=== PATIENT | male | born 1955 | race Caucasian/White ===

== ENCOUNTER → 2016-03-22 | Outpatient (CLI) | payer MEDICARE, MEDICAID ==
[~2016-03-22] MED LIST: /WARF5TA; ACET65TA; ENOX40SY; IBUP600T; LISI20TA5; LORA2TAB; ZEST10TA5
[2016-03-22 10:22] LABS: INR 2.32
== END ==
LOC: M LAB 09:09
PROVIDERS: ATTEND Physician Assistant Medical
DX: Z86.718 Personal history of other venous thrombosis and embolism (principal)

== ENCOUNTER 2016-03-31 09:18 | Emergency (ER) | payer MEDICARE, MEDICAID ==
--- NOTE | 2016-03-31 09:52 | EDDOCDS ---
Nurse's Notes [facility] Name: Houston Carolina Age: 60 yrs Sex: Male : 1955 Arrival Date: 03/31/2016 Time: 09:18 Bed TR7 Private MD: Jeni Martinez PA-C. Diagnosis: Dental caries-with surrounding gingivitis and phlegmon left lower jaw line Presentation: 03/31 09:24 Presenting complaint: Patient states: noticed swelling in left jaw 1 day ago. Report kr3 has had tooth ache 'recently'. Adult Sepsis Screening: The patient does not have new or worsening altered mentation. Patient's respiratory rate is less than 22. Systolic blood pressure is greater than 100. Patient has a qSOFA score of 0- Negative Sepsis Screen. Suicide/Homicide risk assessment- the patient denies having any suicidal and/or homicidal ideations and does not present with any other emotional, behavioral or mental health complaints. 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 Transition of care: patient was not received from another setting of care. 09:24 Acuity: CRISTINE Level 4 kr3 09:24 Method Of Arrival: Walkin/Carried/Asstd kr3 Triage Assessment: 09:26 General: Appears in no apparent distress, comfortable, Behavior is appropriate for age, kr3 cooperative. Pain: Location: left jaw Pain currently is 4 out of 10 on a pain scale. HIV screening NA for this visit Offered previously. EENT: Reports pain in left jaw. Respiratory: Airway is patent Respiratory effort is even, unlabored. Derm: Skin is normal, Swollen area noted on left jaw. Historical: - Allergies: no known allergies; - Home Meds: 1. Lisinopril Oral once daily 2. Amlodipine Oral once daily 3. warfarin 4 mg Oral tab once daily - PMHx: Hypertension; DVT; - PSHx: Appendectomy; Hernia repair; - Social history: Smoking status: Patient uses tobacco products, current every day smoker. No barriers to communication noted, The patient speaks fluent [place], Speaks appropriately for age. - Family history: Not pertinent. - : The pt / caregiver states he / she is on anticoagulants: coumadin. Home medication list is obtained from the patient. - Exposure Risk Screening:: None identified. Screenin:43 Screening information is obtained from the patient. Primary language is Citizen Of [place]. Fall dwg risk: No risks identified. Assistance ADL's: requires no assistance with activities of daily living. Abuse/DV Screen: The patient / caregiver reports he/she is: not in a situation that causes fear, pain or injury. Nutritional screening: No deficits noted. Advance Directives: Currently, there is no health care proxy. There is no active DNR order. There is no living will. There is no Power of Mechanical Manufacturing Engineer. Advance directive information has not previously been placed in an [facility] medical record. Further advance directive information is declined. home support is adequate. Assessment: 09:43 The patient / caregiver is instructed regarding the plan of care and ED course. dwg Physical assessment to be completed by RAFY/ELISA. Vital Signs: 09:21 BP 158 / 89 RA Sitting (auto/reg); Pulse 87 RA; Resp 18 S; Temp 98.0(O); Pulse Ox 99% mt4 on R/A; Weight 81.65 kg (M); Height 5 ft. 10 in. (177.80 cm) (M); Pain 4/10; 09:21 Body Mass Index 25.83 (81.65 kg, 177.80 cm) mt4 Vitals: 09:21 Log In Time: March 31, 2016 at 09:18. mt4 ED Course: 09:19 Patient visited by Sara Weiss. mt4 09:19 Patient moved to Waiting mt4 09:21 Jeni Martinez is Private Physician. mt4 09:22 Patient moved to Pre RCE mt4 09:23 Patient moved to Triage 1 kr3 09:24 Triage Initiated kr3 09:30 [facility] ar2 09:30 Jimi Ricardo MD is Attending Physician. ar2 09:30 Patient visited by Jace Nolasco PA-C. ar2 09:37 Jeni Martinez is Referral Physician. ar2 09:44 Patient has correct armband on for positive identification. Bed in low position. dwg 09:44 Patient name changed from Houston\S\G\S\Labreck\S\ to Houston\S\G\S\Labreck Jr. EDMS 09:44 No IV's were initiated during this patient's visit. No procedures done that require dwg assistance. 09:45 [facility] Payment Agreement was scanned into [employer] and attached to record. 09:49 Patient name changed from Houston\S\G\S\Labreck Jr\S\ to Houston\S\G\S\Labreck. EDMS 09:50 Patient moved to TR7 dwg Order Results: There are currently no results for this order. Outcome: 09:38 Discharge ordered by Provider. ar2 09:43 The following High Risk Discharge criteria are identified: None. Discharged to home dwg ambulatory. Condition: good Condition: stable. No special radiology studies were completed. 09:44 Discharge Assessment: Patient awake, alert and oriented x 3. No cognitive and/or dwg functional deficits noted. Patient verbalized understanding of disposition instructions. patient administered narcotics - no. Property sent home with patient. 09:52 Patient left the ED. dwg Signatures: Dispatcher [employer] EDMS Soren Doran RN RN dwg Chris Forde, Jerzy [facility] Ashley Law RN RN kr3 Jace Nolasco PA-C PA-C ar2 Sara Weiss wa4 MAIN
--- NOTE | 2016-03-31 09:52 | EDDOCDS ---
Physician Documentation [facility] Name: Houston Carolina Age: 60 yrs Sex: Male : 1955 Arrival Date: 03/31/2016 Time: 09:18 Bed TR7 Private MD: Jeni Martinez PA-C. Disposition: 03/31/16 09:38 Discharged to Home/Self Care. Impression: Dental caries - with surrounding gingivitis and phlegmon left lower jaw line. - Condition is Stable. - Discharge Instructions: Dental Abscess, Dental Pain. - Prescriptions for Augmentin 875- 125 mg Oral Tablet - take 1 tablet by ORAL route every 12 hours for 10 days; 20 tablet. - Medication Reconciliation, Local Pharmacy Hours, Dental Referral List form. - Follow up: Jeni Martinez; When: As previously arranged; Reason: Continuance of care. Follow up: Private Physician; When: Call to arrange an appointment; Reason: Recheck today's complaints. Follow up: Emergency Department; When: As needed; Reason: Fever > 102F, Trouble breathing, Worsening of conditions. - Problem is new. - Symptoms are unchanged. - Notes: have your primary care provider monitor your coumadin level closely while on antibiotic Historical: - Allergies: no known allergies; - Home Meds: 1. Lisinopril Oral once daily 2. Amlodipine Oral once daily 3. warfarin 4 mg Oral tab once daily - PMHx: Hypertension; DVT; - PSHx: Appendectomy; Hernia repair; - Social history: Smoking status: Patient uses tobacco products, current every day smoker. No barriers to communication noted, The patient speaks fluent Arabic, Speaks appropriately for age. - Family history: Not pertinent. - : The pt / caregiver states he / she is on anticoagulants: coumadin. Home medication list is obtained from the patient. - Exposure Risk Screening:: None identified. Vital Signs: 03/31 09:21 BP 158 / 89 RA Sitting (auto/reg); Pulse 87 RA; Resp 18 S; Temp 98.0(O); Pulse Ox 99% mt4 on R/A; Weight 81.65 kg / 180.01 lbs (M); Height 5 ft. 10 in. (177.80 cm) (M); Pain 4/10; 09:21 Body Mass Index 25.83 (81.65 kg, 177.80 cm) mt4 MDM: 09:39 Financial registration complete. 09:45 [facility] Payment Agreement was scanned into [employer] and attached to record. lg Signatures: Soren Doran, RN RICARDA dwChris Resendez, Jerzy Reg lg Ashley Law RN RN kr3 Jace Nolasco, MIGUEL PASe ar2 The chart was reviewed and I authenticate all verbal orders and agree with the evaluation and treatment provided.Attachments: 09:45 [facility] Payment Agreement lg MTDD
--- NOTE | 2016-04-02 10:52 | EDDOCDS ---
Physician Documentation [facility] Name: Houston Carolina Jr Age: 60 yrs Sex: Male : 1955 Arrival Date: 03/31/2016 Time: 09:18 Bed TR7 Private MD: Jeni Martinez PA-C. Disposition: 03/31/16 09:38 Discharged to Home/Self Care. Impression: Dental caries - with surrounding gingivitis and phlegmon left lower jaw line. - Condition is Stable. - Discharge Instructions: Dental Abscess, Dental Pain. - Prescriptions for Augmentin 875- 125 mg Oral Tablet - take 1 tablet by ORAL route every 12 hours for 10 days; 20 tablet. - Medication Reconciliation, Local Pharmacy Hours, Dental Referral List form. - Follow up: Jeni Martinez; When: As previously arranged; Reason: Continuance of care. Follow up: Private Physician; When: Call to arrange an appointment; Reason: Recheck today's complaints. Follow up: Emergency Department; When: As needed; Reason: Fever > 102F, Trouble breathing, Worsening of conditions. - Problem is new. - Symptoms are unchanged. - Notes: have your primary care provider monitor your coumadin level closely while on antibiotic Historical: - Allergies: no known allergies; - Home Meds: 1. Lisinopril Oral once daily 2. Amlodipine Oral once daily 3. warfarin 4 mg Oral tab once daily - PMHx: Hypertension; DVT; - PSHx: Appendectomy; Hernia repair; - Social history: Smoking status: Patient uses tobacco products, current every day smoker. No barriers to communication noted, The patient speaks fluent Hong Konger, Speaks appropriately for age. - Family history: Not pertinent. - : The pt / caregiver states he / she is on anticoagulants: coumadin. Home medication list is obtained from the patient. - Exposure Risk Screening:: None identified. Vital Signs: 03/31 09:21 BP 158 / 89 RA Sitting (auto/reg); Pulse 87 RA; Resp 18 S; Temp 98.0(O); Pulse Ox 99% mt4 on R/A; Weight 81.65 kg / 180.01 lbs (M); Height 5 ft. 10 in. (177.80 cm) (M); Pain 4/10; 09:21 Body Mass Index 25.83 (81.65 kg, 177.80 cm) mt4 MDM: 09:39 Financial registration complete. lg 09:45 [facility] Payment Agreement was scanned into [employer] and attached to record. lg 14:41 T-Sheet-- Draft Copy was scanned into [employer] and attached to record. gb Signatures: Soren Doran, RN RN dwg Alisson Solorio, Reg Reg gb Chris Forde, Reg Reg lg Ashley Law RN RN kr3 Jace Nolasco, PASe PASe ar2 The chart was reviewed and I authenticate all verbal orders and agree with the evaluation and treatment provided.Attachments: 09:45 [facility] Payment Agreement lg 14:41 T-Sheet-- Draft Copy gb Chart Complete MTDD
--- NOTE | 2016-04-02 10:52 | EDDOCDS ---
Nurse's Notes [facility] Name: Houston Carolina Jr Age: 60 yrs Sex: Male : 1955 Arrival Date: 03/31/2016 Time: 09:18 Bed TR7 Private MD: Jeni Martinez PA-C. Diagnosis: Dental caries-with surrounding gingivitis and phlegmon left lower jaw line Presentation: 03/31 09:24 Presenting complaint: Patient states: noticed swelling in left jaw 1 day ago. Report kr3 has had tooth ache 'recently'. Adult Sepsis Screening: The patient does not have new or worsening altered mentation. Patient's respiratory rate is less than 22. Systolic blood pressure is greater than 100. Patient has a qSOFA score of 0- Negative Sepsis Screen. Suicide/Homicide risk assessment- the patient denies having any suicidal and/or homicidal ideations and does not present with any other emotional, behavioral or mental health complaints. Status: Patient is not a service specialist or dependent. Transition of care: patient was not received from another setting of care. 09:24 Acuity: CRISTINE Level 4 kr3 09:24 Method Of Arrival: Walkin/Carried/Asstd kr3 Triage Assessment: 09:26 General: Appears in no apparent distress, comfortable, Behavior is appropriate for age, kr3 cooperative. Pain: Location: left jaw Pain currently is 4 out of 10 on a pain scale. HIV screening NA for this visit Offered previously. EENT: Reports pain in left jaw. Respiratory: Airway is patent Respiratory effort is even, unlabored. Derm: Skin is normal, Swollen area noted on left jaw. Historical: - Allergies: no known allergies; - Home Meds: 1. Lisinopril Oral once daily 2. Amlodipine Oral once daily 3. warfarin 4 mg Oral tab once daily - PMHx: Hypertension; DVT; - PSHx: Appendectomy; Hernia repair; - Social history: Smoking status: Patient uses tobacco products, current every day smoker. No barriers to communication noted, The patient speaks fluent Tajik, Speaks appropriately for age. - Family history: Not pertinent. - : The pt / caregiver states he / she is on anticoagulants: coumadin. Home medication list is obtained from the patient. - Exposure Risk Screening:: None identified. Screenin:43 Screening information is obtained from the patient. Primary language is Tajik. Fall dwg risk: No risks identified. Assistance ADL's: requires no assistance with activities of daily living. Abuse/DV Screen: The patient / caregiver reports he/she is: not in a situation that causes fear, pain or injury. Nutritional screening: No deficits noted. Advance Directives: Currently, there is no health care proxy. There is no active DNR order. There is no living will. There is no Power of Jr. Java Developer. Advance directive information has not previously been placed in an [facility] medical record. Further advance directive information is declined. home support is adequate. Assessment: 09:43 The patient / caregiver is instructed regarding the plan of care and ED course. dwg Physical assessment to be completed by RAFY/ELISA. Vital Signs: 09:21 BP 158 / 89 RA Sitting (auto/reg); Pulse 87 RA; Resp 18 S; Temp 98.0(O); Pulse Ox 99% mt4 on R/A; Weight 81.65 kg (M); Height 5 ft. 10 in. (177.80 cm) (M); Pain 4/10; 09:21 Body Mass Index 25.83 (81.65 kg, 177.80 cm) mt4 Vitals: 09:21 Log In Time: March 31, 2016 at 09:18. mt4 ED Course: 09:19 Patient visited by Sara Weiss. mt4 09:19 Patient moved to Waiting mt4 09:21 Jeni Martinez is Private Physician. mt4 09:22 Patient moved to Pre RCE mt4 09:23 Patient moved to Triage 1 kr3 09:24 Triage Initiated kr3 09:30 [facility] ar2 09:30 Jimi Ricardo MD is Attending Physician. ar2 09:30 Patient visited by Jace Nolasco PA-C. ar2 09:37 Jeni Martinez is Referral Physician. ar2 09:44 Patient has correct armband on for positive identification. Bed in low position. dwg 09:44 Patient name changed from Houston\S\G\S\Labreck\S\ to Houston\S\G\S\Labreck Jr. EDMS 09:44 No IV's were initiated during this patient's visit. No procedures done that require dwg assistance. 09:45 [facility] Payment Agreement was scanned into Room 21 [employer] and attached to record. lg 09:49 Patient name changed from Houston\S\G\S\Labreck Jr\S\ to Houston\S\G\S\Labreck. EDMS 09:50 Patient moved to TR7 dw 09:52 Patient name changed from Houston\S\G\S\Labreck\S\ to Houston\S\G\S\Labreck Jr. EDMS 10:03 Patient name changed from Houston\S\G\S\Labreck Jr\S\ to Houston\S\G\S\Labreck. EDMS 10:06 Patient name changed from Houston\S\G\S\Labreck\S\ to Houston\S\G\S\Labreck Jr. EDMS 10:10 Patient name changed from Houston\S\G\S\Labreck Jr\S\ to Houston\S\G\S\Labreck. EDMS 10:11 Patient name changed from Houston\S\G\S\Labreck\S\ to Houston\S\G\S\Labreck Jr. EDMS 14:41 T-Sheet-- Draft Copy was scanned into Room 21 Media and attached to record. gb Order Results: There are currently no results for this order. Outcome: 09:38 Discharge ordered by Provider. ar2 09:43 The following High Risk Discharge criteria are identified: None. Discharged to home dw ambulatory. Condition: good Condition: stable. No special radiology studies were completed. 09:44 Discharge Assessment: Patient awake, alert and oriented x 3. No cognitive and/or dwg functional deficits noted. Patient verbalized understanding of disposition instructions. patient administered narcotics - no. Property sent home with patient. 09:52 Patient left the ED. [facility] Signatures: [facility] Soren Doran, RICARDA CHOWDARY dwg Alisson Solorio, Reg Reg gb Chris Forde, Reg Reg lg Ashley Law,RICARDA RN kr3 Jace Nolasco, PASe PARossiC ar2 Sara Weiss md4 Chart Complete MTDD
--- NOTE | 2016-04-02 10:52 | EDDOCDS ---
Physician Documentation [facility] Name: Houston Carolina Jr Age: 60 yrs Sex: Male : 1955 Arrival Date: 03/31/2016 Time: 09:18 Bed TR7 Private MD: Jeni Martinez PA-C. Disposition: 03/31/16 09:38 Discharged to Home/Self Care. Impression: Dental caries - with surrounding gingivitis and phlegmon left lower jaw line. - Condition is Stable. - Discharge Instructions: Dental Abscess, Dental Pain. - Prescriptions for Augmentin 875- 125 mg Oral Tablet - take 1 tablet by ORAL route every 12 hours for 10 days; 20 tablet. - Medication Reconciliation, Local Pharmacy Hours, Dental Referral List form. - Follow up: Jeni Martinez; When: As previously arranged; Reason: Continuance of care. Follow up: Private Physician; When: Call to arrange an appointment; Reason: Recheck today's complaints. Follow up: Emergency Department; When: As needed; Reason: Fever > 102F, Trouble breathing, Worsening of conditions. - Problem is new. - Symptoms are unchanged. - Notes: have your primary care provider monitor your coumadin level closely while on antibiotic Historical: - Allergies: no known allergies; - Home Meds: 1. Lisinopril Oral once daily 2. Amlodipine Oral once daily 3. warfarin 4 mg Oral tab once daily - PMHx: Hypertension; DVT; - PSHx: Appendectomy; Hernia repair; - Social history: Smoking status: Patient uses tobacco products, current every day smoker. No barriers to communication noted, The patient speaks fluent Trinidadian, Speaks appropriately for age. - Family history: Not pertinent. - : The pt / caregiver states he / she is on anticoagulants: coumadin. Home medication list is obtained from the patient. - Exposure Risk Screening:: None identified. Vital Signs: 03/31 09:21 BP 158 / 89 RA Sitting (auto/reg); Pulse 87 RA; Resp 18 S; Temp 98.0(O); Pulse Ox 99% mt4 on R/A; Weight 81.65 kg / 180.01 lbs (M); Height 5 ft. 10 in. (177.80 cm) (M); Pain 4/10; 09:21 Body Mass Index 25.83 (81.65 kg, 177.80 cm) mt4 MDM: 09:39 Financial registration complete. lg 09:45 [facility] Payment Agreement was scanned into [email or web address] and attached to record. lg 14:41 T-Sheet-- Draft Copy was scanned into [email or web address] and attached to record. gb Signatures: Soren Doran, RN RN dwg Alisson Solorio, Reg Reg gb Chris Forde, Reg Reg lg Ashley Law RN RN kr3 Jace Nolasco, PASe PASe ar2 The chart was reviewed and I authenticate all verbal orders and agree with the evaluation and treatment provided.Attachments: 09:45 [facility] Payment Agreement lg 14:41 T-Sheet-- Draft Copy gb Chart Complete MTDD
== END 2016-03-31 09:52 | disposition home or self-care (01) ==
LOC: M ED 09:18
DX: K04.7 Periapical abscess without sinus (principal); K02.9 Dental caries, unspecified; K05.00 Acute gingivitis, plaque induced; I10 Essential (primary) hypertension; Z86.718 Personal history of other venous thrombosis and embolism; F17.200 Nicotine dependence, unspecified, uncomplicated; Z79.899 Other long term (current) drug therapy; Z79.01 Long term (current) use of anticoagulants

== ENCOUNTER → 2016-04-27 | Outpatient (CLI) | payer MEDICARE, MEDICAID ==
[2016-04-27 09:52] LABS: INR 2.03
== END ==
LOC: M LAB 09:14
PROVIDERS: ATTEND Physician Assistant Medical
DX: Z86.718 Personal history of other venous thrombosis and embolism (principal)

== ENCOUNTER → 2016-05-24 | Outpatient (CLI) | payer MEDICARE, MEDICAID ==
[2016-05-24 10:28] LABS: INR 3.66
== END ==
LOC: M LAB 09:31
PROVIDERS: ATTEND Physician Assistant Medical
DX: Z86.718 Personal history of other venous thrombosis and embolism (principal)

== ENCOUNTER → 2016-05-30 | Outpatient (CLI) | payer MEDICARE, MEDICAID ==
[2016-05-30 10:15] LABS: INR 3.02
== END ==
LOC: M LAB 09:31
PROVIDERS: ATTEND Physician Assistant Medical
DX: Z86.718 Personal history of other venous thrombosis and embolism (principal)

== ENCOUNTER → 2016-07-04 | Outpatient (CLI) | payer MEDICARE, MEDICAID ==
[2016-07-04 09:52] LABS: INR 2.46
== END ==
LOC: M LAB 09:17
PROVIDERS: ATTEND Physician Assistant Medical
DX: Z51.81 Encounter for therapeutic drug level monitoring (principal); Z79.01 Long term (current) use of anticoagulants; Z86.718 Personal history of other venous thrombosis and embolism

== ENCOUNTER → 2016-08-02 | Outpatient (CLI) | payer MEDICARE, MEDICAID ==
[2016-08-02 10:16] LABS: BASO % 0.8 % (0.0-1.0); EOS # 0.2 K/mm3 (0.0-0.50); EOS % 3.6 % (0.0-3.0); LARGE UNSTAINED CELL # 0.1 K/mm3 (0.0-0.4); LARGE UNSTAINED CELL % 2.3 % (0.0-4.0); LYMPH # 1.4 K/mm3 (1.5-4.5); LYMPH % 28.4 % (24.0-44.0); MONO # 0.4 K/mm3 (0.0-0.8); MONO % 8.9 % (0.0-5.0); NEUTROPHILS # 2.5 K/mm3 (1.8-7.7); RED CELL DISTRIBUTION WIDTH 12.3 % (11.5-14.5); WHITE BLOOD COUNT 4.5 K/mm3 (4.0-10.0)
[2016-08-02 10:22] LABS: INR 2.6
[2016-08-02 10:27] LABS: MEAN CORPUSCULAR HEMOGLOBIN 31.9 pg (27.0-33.0); MEAN CORPUSCULAR HGB CONC 35.5 g/dl (32.0-36.5); MEAN CORPUSCULAR VOLUME 89.8 fl (80.0-96.0)
[2016-08-02 10:28] LABS: PLATELET COUNT, AUTOMATED 206 k/mm3 (150-450)
[2016-08-02 10:49] LABS: ALBUMIN 3.7 GM/DL (3.2-5.2); ALBUMIN/GLOBULIN RATIO 0.95 (1.00-1.93); ALKALINE PHOSPHATASE 81 U/L (45-117); ALT/SGPT 34 U/L (12-78); ANION GAP 7 MEQ/L (8-16); AST/SGOT 28 U/L (15-37); BILIRUBIN,TOTAL 0.6 MG/DL (0.2-1.0); BLOOD UREA NITROGEN 12 MG/DL (7-18); CALCIUM LEVEL 8.8 MG/DL (8.8-10.2); CARBON DIOXIDE LEVEL 28 MEQ/L (21-32); CHLORIDE LEVEL 99 MEQ/L (98-107); CHOLESTEROL LEVEL 187 MG/DL (<200); CREATININE FOR GFR 1.05 MG/DL (0.70-1.30); GLOMERULAR FILTRATION RATE > 60.0 (>49); GLUCOSE, FASTING 119 MG/DL (80-110); POTASSIUM SERUM 4.6 MEQ/L (3.5-5.1); SODIUM LEVEL 134 MEQ/L (136-145); TOTAL PROTEIN 7.6 GM/DL (6.4-8.2); TRIGLYCERIDES LEVEL 45 MG/DL (<150)
== END ==
LOC: M LAB 09:34
PROVIDERS: ATTEND Physician Assistant Medical
DX: R73.01 Impaired fasting glucose (principal); Z86.718 Personal history of other venous thrombosis and embolism; I10 Essential (primary) hypertension; Z79.01 Long term (current) use of anticoagulants; Z12.5 Encounter for screening for malignant neoplasm of prostate
CPT/HCPCS: 36415; 80053; 80061; 83036; 85025; 85610; G0103

== ENCOUNTER → 2016-09-05 | Outpatient (CLI) | payer MEDICARE, MEDICAID ==
[~2016-09-05] MED LIST changes: +CLEO300C2 PO; +COUM1TAB17 PO; +LISI-538 PO; +NORCOTAB PO
[2016-09-05 10:33] LABS: INR 2.46
== END ==
LOC: M LAB 09:38
PROVIDERS: ATTEND Physician Assistant Medical
DX: I82.5Y9 Chronic embolism and thrombosis of unspecified deep veins of unspecified proximal lower extremity (principal)

== ENCOUNTER 2016-09-06 18:04 | Emergency (ER) | payer MEDICARE, MEDICAID ==
[~2016-09-06] VITALS: Ht 180.3 cm; Wt 80.8 kg
[~2016-09-06 18:04] MED LIST changes: -CLEO300C2 PO; -COUM1TAB17 PO; -LISI-538 PO; -NORCOTAB PO
[2016-09-06] MEDS ORDERED: LISI-538 PO (18:16)
[2016-09-06] MEDS ORDERED: COUM1TAB17 PO (18:16)
[2016-09-06] MEDS ORDERED: CLEO300C2 PO (18:56)
[2016-09-06] MEDS ORDERED: NORCO, ANEXSIA 5/325MG TABLET (HYDROcodone/ACETAMINOPHEN) PO ONE (19:00)
[2016-09-06] MEDS ORDERED: CLINDAMYCIN 150 MG CAP PO ONE (19:00)
[2016-09-06] MEDS ORDERED: NORCOTAB PO (19:06)
[2016-09-06 19:17] VITALS: BP 161/88
== END 2016-09-06 19:18 | disposition home or self-care (01) ==
LOC: M ED 18:49
DX: K02.9 Dental caries, unspecified (principal); R68.84 Jaw pain; I10 Essential (primary) hypertension; Z86.711 Personal history of pulmonary embolism; Z79.899 Other long term (current) drug therapy; Z79.01 Long term (current) use of anticoagulants; F17.210 Nicotine dependence, cigarettes, uncomplicated

== ENCOUNTER 2016-09-10 09:46 | Emergency (ER) | payer MEDICARE, MEDICAID ==
[~2016-09-10] VITALS: Ht 180.3 cm; Wt 80.8 kg
[2016-09-10 09:46] VITALS: BP 157/89
[~2016-09-10 09:46] MED LIST changes: +CLEO300C2 PO; +COUM1TAB17 PO; +LISI-538 PO; +NORCOTAB PO
[2016-09-10] MEDS ORDERED: LORA10TA2 PO (10:00)
[2016-09-10] MEDS ORDERED: AMLO5TAB2 PO (10:00)
[2016-09-10] MEDS ORDERED: NORCOTAB PO (10:38)
== END 2016-09-10 10:45 | disposition home or self-care (01) ==
LOC: M ED 09:46
DX: K04.7 Periapical abscess without sinus (principal)

== ENCOUNTER → 2016-10-02 | Outpatient (CLI) | payer MEDICARE, MEDICAID ==
[~2016-10-02] MED LIST changes: +AMLO5TAB2 PO; +LORA10TA2 PO
[2016-10-02 10:23] LABS: INR 2.16
== END ==
LOC: M LAB 09:22
PROVIDERS: ATTEND Physician Assistant Medical
DX: I82.5Y9 Chronic embolism and thrombosis of unspecified deep veins of unspecified proximal lower extremity (principal)

== ENCOUNTER → 2016-11-05 | Outpatient (CLI) | payer MEDICARE, MEDICAID ==
[2016-11-05 10:06] LABS: INR 2.89
== END ==
LOC: M LAB 09:22
PROVIDERS: ATTEND Physician Assistant Medical
DX: I82.5Y9 Chronic embolism and thrombosis of unspecified deep veins of unspecified proximal lower extremity (principal)

== ENCOUNTER → 2016-11-09 | Outpatient (CLI) | payer MEDICARE, MEDICAID ==
[2016-11-09 10:42] LABS: INR 2.88
== END ==
LOC: M LAB 09:39
PROVIDERS: ATTEND Physician Assistant Medical
DX: I82.5Y9 Chronic embolism and thrombosis of unspecified deep veins of unspecified proximal lower extremity (principal)

== ENCOUNTER → 2016-12-12 | Outpatient (CLI) | payer MEDICARE, MEDICAID ==
[2016-12-12 10:36] LABS: INR 2.36
== END ==
LOC: M LAB 09:23
PROVIDERS: ATTEND Physician Assistant Medical
DX: Z79.01 Long term (current) use of anticoagulants (principal)

== ENCOUNTER → 2017-02-01 | Outpatient (CLI) | payer MEDICARE, MEDICAID ==
[2017-02-01 09:50] LABS: INR 3.64
== END ==
LOC: M LAB 08:30
PROVIDERS: ATTEND Physician Assistant Medical
DX: I82.5Y9 Chronic embolism and thrombosis of unspecified deep veins of unspecified proximal lower extremity (principal)

== ENCOUNTER → 2017-02-12 | Outpatient (CLI) | payer MEDICARE, MEDICAID ==
[2017-02-12 10:03] LABS: INR 2.45
== END ==
LOC: M LAB 08:33
PROVIDERS: ATTEND Physician Assistant Medical
DX: I82.5Y9 Chronic embolism and thrombosis of unspecified deep veins of unspecified proximal lower extremity (principal)

== ENCOUNTER → 2017-03-15 | Outpatient (CLI) | payer MEDICARE, MEDICAID ==
[2017-03-15 09:12] LABS: INR 3.12; PROTHROMBIN TIME 33.5 SECONDS (12.4-14.5)
== END ==
LOC: M LAB 08:24
DX: I82.5Y9 Chronic embolism and thrombosis of unspecified deep veins of unspecified proximal lower extremity (principal)
CPT/HCPCS: 85610

== ENCOUNTER → 2017-03-29 | Outpatient (CLI) | payer MEDICARE, MEDICAID ==
[2017-03-29 08:16] LABS: INR 3.21; PROTHROMBIN TIME 34.3 SECONDS (12.4-14.5)
== END ==
LOC: M LAB 07:32
DX: I82.5Y9 Chronic embolism and thrombosis of unspecified deep veins of unspecified proximal lower extremity (principal)
CPT/HCPCS: 85610

== ENCOUNTER → 2017-04-05 | Outpatient (CLI) | payer MEDICARE, MEDICAID ==
[2017-04-05 09:36] LABS: INR 3.77; PROTHROMBIN TIME 39.1 SECONDS (12.4-14.5)
== END ==
LOC: M LAB 08:08
DX: I82.5Y9 Chronic embolism and thrombosis of unspecified deep veins of unspecified proximal lower extremity (principal)
CPT/HCPCS: 85610

== ENCOUNTER 2017-04-09 12:36 | Emergency (ER) | payer MEDICARE, MEDICAID ==
[2017-04-09] MEDS: NS 1,000 ML IV (13:39)
[2017-04-09 14:01] LABS: BASO % 0.7 % (0.0-1.0); EOS % 0.7 % (0.0-3.0); HEMATOCRIT 42.1 % (42.0-52.0); HEMOGLOBIN 15.3 g/dl (14.0-18.0); IMMATURE GRANULOCYTE % 0.2 % (0-0); LYMPH # 1.4 10^3/uL (1.5-4.5); LYMPH % 30.4 % (24.0-44.0); MEAN CORPUSCULAR HEMOGLOBIN 31.2 pg (27.0-33.0); MEAN CORPUSCULAR HGB CONC 36.3 g/dl (32.0-36.5); MEAN CORPUSCULAR VOLUME 85.9 fl (80.0-96.0); MONO # 0.5 10^3/uL (0.0-0.8); MONO % 9.8 % (0.0-5.0); NEUTROPHILS # 2.7 10^3/uL (1.8-7.7); NEUTROPHILS % 58.2 % (36.0-66.0); PLATELET COUNT, AUTOMATED 217 10^3/uL (150-450); RED CELL DISTRIBUTION WIDTH 11.9 % (11.5-14.5); WHITE BLOOD COUNT 4.6 10^3/uL (4.0-10.0)
[2017-04-09 14:04] LABS: KETONE, URINE AUTO RFX NEGATIVE (NEGATIVE); LEUKOCYTE ESTERASE UR AUTO RFX NEGATIVE (NEGATIVE); NITRITE, URINE AUTO RFX NEGATIVE (NEGATIVE); RBC, URINE AUTO RFX 0 /HPF (0-3); SPECIFIC GRAVITY UR AUTO RFX 1.002 (1.002-1.035); SQUAM EPITHELIAL CELL UR AURFX 0 /HPF (0-6); WBC, URINE AUTO RFX 0 /HPF (0-3)
[2017-04-09 14:21] LABS: ALBUMIN/GLOBULIN RATIO 0.91 (1.00-1.93); ALKALINE PHOSPHATASE 68 U/L (45-117); ALT/SGPT 24 U/L (12-78); ANION GAP 5 MEQ/L (8-16); AST/SGOT 25 U/L (7-37); BILIRUBIN,DIRECT 0.2 MG/DL (0.0-0.2); BILIRUBIN,TOTAL 0.6 MG/DL (0.2-1.0); BLOOD UREA NITROGEN 9 MG/DL (7-18); CALCIUM LEVEL 9.1 MG/DL (8.8-10.2); CARBON DIOXIDE LEVEL 30 MEQ/L (21-32); CHLORIDE LEVEL 99 MEQ/L (98-107); CREATININE FOR GFR 0.94 MG/DL (0.70-1.30); GLOMERULAR FILTRATION RATE > 60.0 (>49); GLUCOSE, FASTING 99 MG/DL (70-100); LIPASE 291 U/L (73-393); POTASSIUM SERUM 4.2 MEQ/L (3.5-5.1); SODIUM LEVEL 134 MEQ/L (136-145); TOTAL PROTEIN 8.4 GM/DL (6.4-8.2)
== END 2017-04-09 14:48 | disposition home or self-care (01) ==
LOC: M ED 12:36
DX: R10.12 Left upper quadrant pain (principal); M54.9 Dorsalgia, unspecified; I10 Essential (primary) hypertension; Z86.711 Personal history of pulmonary embolism; Z86.718 Personal history of other venous thrombosis and embolism; J30.89 Other allergic rhinitis; Z79.899 Other long term (current) drug therapy; Z79.01 Long term (current) use of anticoagulants; F17.210 Nicotine dependence, cigarettes, uncomplicated
CPT/HCPCS: 74176

== ENCOUNTER → 2017-04-22 | Outpatient (CLI) | payer MEDICARE, MEDICAID ==
[2017-04-22 09:34] LABS: INR 2.26; PROTHROMBIN TIME 25.8 SECONDS (12.4-14.5)
== END ==
LOC: M LAB 08:48
DX: I82.5Y9 Chronic embolism and thrombosis of unspecified deep veins of unspecified proximal lower extremity (principal)
CPT/HCPCS: 85610

== ENCOUNTER → 2017-05-23 | Outpatient (CLI) | payer MEDICARE, MEDICAID ==
[2017-05-23 09:13] LABS: INR 1.68; PROTHROMBIN TIME 20.3 SECONDS (12.4-14.5)
== END ==
LOC: M LAB 08:19
DX: I82.5Y9 Chronic embolism and thrombosis of unspecified deep veins of unspecified proximal lower extremity (principal)
CPT/HCPCS: 85610

== ENCOUNTER → 2017-06-07 | Outpatient (CLI) | payer MEDICARE, MEDICAID ==
[2017-06-07 08:43] LABS: INR 2.64; PROTHROMBIN TIME 29.3 SECONDS (12.4-14.5)
== END ==
LOC: M LAB 08:01
DX: I82.5Y9 Chronic embolism and thrombosis of unspecified deep veins of unspecified proximal lower extremity (principal)
CPT/HCPCS: 85610

== ENCOUNTER → 2017-07-12 | Outpatient (CLI) | payer MEDICARE, MEDICAID ==
[2017-07-12 08:59] LABS: INR 3.16; PROTHROMBIN TIME 33.9 SECONDS (12.4-14.5)
== END ==
LOC: M LAB 08:20
DX: I82.91 Chronic embolism and thrombosis of unspecified vein (principal)
CPT/HCPCS: 85610

== ENCOUNTER → 2017-07-29 | Outpatient (CLI) | payer MEDICARE, MEDICAID ==
[2017-07-29 08:48] LABS: INR 2.83
== END ==
LOC: M LAB 08:06
DX: I82.91 Chronic embolism and thrombosis of unspecified vein (principal)
CPT/HCPCS: 85610

== ENCOUNTER → 2017-08-29 | Outpatient (CLI) | payer MEDICARE, MEDICAID ==
[2017-08-29 08:59] LABS: INR 2.56; PROTHROMBIN TIME 28.6 SECONDS (12.4-14.5)
== END ==
LOC: M LAB 08:05
DX: I82.5Y9 Chronic embolism and thrombosis of unspecified deep veins of unspecified proximal lower extremity (principal)
CPT/HCPCS: 85610

== ENCOUNTER → 2017-09-30 | Outpatient (CLI) | payer MEDICARE, MEDICAID ==
[2017-09-30 09:00] LABS: PROTHROMBIN TIME 33.4 SECONDS (12.1-14.4)
== END ==
LOC: M LAB 08:11
DX: I82.5Y9 Chronic embolism and thrombosis of unspecified deep veins of unspecified proximal lower extremity (principal)
CPT/HCPCS: 85610

== ENCOUNTER → 2017-10-14 | Outpatient (CLI) | payer MEDICARE, MEDICAID ==
[2017-10-14 09:11] LABS: INR 3.85; PROTHROMBIN TIME 38.8 SECONDS (12.1-14.4)
== END ==
LOC: M LAB 08:03
DX: I82.5Y9 Chronic embolism and thrombosis of unspecified deep veins of unspecified proximal lower extremity (principal); Z79.01 Long term (current) use of anticoagulants
CPT/HCPCS: 85610

== ENCOUNTER → 2017-10-21 | Outpatient (CLI) | payer MEDICARE, MEDICAID ==
[2017-10-21 09:32] LABS: INR 2.71; PROTHROMBIN TIME 29.3 SECONDS (12.1-14.4)
== END ==
LOC: M LAB 08:03
DX: Z79.01 Long term (current) use of anticoagulants (principal); I82.5Y9 Chronic embolism and thrombosis of unspecified deep veins of unspecified proximal lower extremity
CPT/HCPCS: 36415

== ENCOUNTER → 2017-11-04 | Outpatient (CLI) | payer MEDICARE, MEDICAID ==
[2017-11-04 08:46] LABS: INR 1.77
[2017-11-04 09:27] LABS: ANION GAP 8 MEQ/L (8-16); BLOOD UREA NITROGEN 8 MG/DL (7-18); CALCIUM LEVEL 8.9 MG/DL (8.8-10.2); CARBON DIOXIDE LEVEL 28 MEQ/L (21-32); CHLORIDE LEVEL 101 MEQ/L (98-107); CHOLESTEROL LEVEL 161 MG/DL (<200); CHOLESTEROL RISK RATIO 1.659 (<5); CREATININE FOR GFR 1.02 MG/DL (0.70-1.30); GLOMERULAR FILTRATION RATE > 60.0 (>49); GLUCOSE, FASTING 124 MG/DL (70-100); HDL CHOLESTEROL 97 MG/DL (>40); NON-HDL-C 64 MG/DL; POTASSIUM SERUM 3.9 MEQ/L (3.5-5.1); SODIUM LEVEL 137 MEQ/L (136-145); TRIGLYCERIDES LEVEL 65 MG/DL (<150)
== END ==
LOC: M LAB 08:07
DX: Z79.01 Long term (current) use of anticoagulants (principal); I82.5Y9 Chronic embolism and thrombosis of unspecified deep veins of unspecified proximal lower extremity
CPT/HCPCS: 80061

== ENCOUNTER → 2017-11-20 | Outpatient (CLI) | payer MEDICARE, MEDICAID ==
[2017-11-20 09:12] LABS: INR 2.71; PROTHROMBIN TIME 29.3 SECONDS (12.1-14.4)
== END ==
LOC: M LAB 08:16
DX: I82.5Y9 Chronic embolism and thrombosis of unspecified deep veins of unspecified proximal lower extremity (principal)
CPT/HCPCS: 85610

== ENCOUNTER → 2017-12-04 | Outpatient (CLI) | payer MEDICARE, MEDICAID ==
[2017-12-04 08:42] LABS: BASO % 0.9 % (0.0-1.0); EOS # 0.1 10^3/uL (0.0-0.50); EOS % 1.7 % (0.0-3.0); HEMATOCRIT 39.1 % (42.0-52.0); HEMOGLOBIN 14.1 g/dl (13.5-17.5); IMMATURE GRANULOCYTE % 0.2 % (0-3.0); LYMPH # 1.4 10^3/uL (1.5-4.5); LYMPH % 30.9 % (24.0-44.0); MEAN CORPUSCULAR HEMOGLOBIN 31.4 pg (27.0-33.0); MEAN CORPUSCULAR HGB CONC 36.1 g/dl (32.0-36.5); MEAN CORPUSCULAR VOLUME 87.1 fl (80.0-96.0); MONO # 0.6 10^3/uL (0.0-0.8); MONO % 13.5 % (0.0-5.0); NEUTROPHILS # 2.4 10^3/uL (1.8-7.7); NEUTROPHILS % 52.8 % (36.0-66.0); PLATELET COUNT, AUTOMATED 210 10^3/uL (150-450); RED BLOOD COUNT 4.49 10^6/uL (4.30-6.10); RED CELL DISTRIBUTION WIDTH 12.3 % (11.5-14.5); WHITE BLOOD COUNT 4.6 10^3/uL (4.0-10.0)
[2017-12-04 08:51] LABS: INR 2.73; PROTHROMBIN TIME 29.5 SECONDS (12.1-14.4)
== END ==
LOC: M LAB 08:14
DX: R53.83 Other fatigue (principal); I82.5Y9 Chronic embolism and thrombosis of unspecified deep veins of unspecified proximal lower extremity
CPT/HCPCS: 84443

== ENCOUNTER → 2018-01-03 | Outpatient (CLI) | payer MEDICARE, MEDICAID ==
[2018-01-03 09:21] LABS: INR 2.32; PROTHROMBIN TIME 25.9 SECONDS (12.1-14.4)
== END ==
LOC: M LAB 08:23
DX: I82.5Y9 Chronic embolism and thrombosis of unspecified deep veins of unspecified proximal lower extremity (principal); Z79.01 Long term (current) use of anticoagulants
CPT/HCPCS: 85610

== ENCOUNTER → 2018-02-03 | Outpatient (CLI) | payer MEDICARE, MEDICAID ==
[2018-02-03 09:23] LABS: INR 2.82; PROTHROMBIN TIME 30.3 SECONDS (12.1-14.4)
== END ==
LOC: M LAB 08:34
DX: I82.5Y9 Chronic embolism and thrombosis of unspecified deep veins of unspecified proximal lower extremity (principal); Z79.01 Long term (current) use of anticoagulants
CPT/HCPCS: 85610

== ENCOUNTER → 2018-03-05 | Outpatient (CLI) | payer MEDICARE, MEDICAID ==
[~2018-03-05] MED LIST changes: +AMLO10TA5; -AMLO5TAB2 PO; +AMLO5TAB6 PO; +LISI40TA; +LORA-243 PO; -LORA10TA2 PO; +WARF-58
[2018-03-05 08:45] LABS: PROTHROMBIN TIME 31.8 SECONDS (12.1-14.4)
== END ==
LOC: M LAB 08:03
PROVIDERS: ATTEND Physician Assistant Medical
DX: I82.5Y9 Chronic embolism and thrombosis of unspecified deep veins of unspecified proximal lower extremity (principal); Z51.81 Encounter for therapeutic drug level monitoring; Z79.01 Long term (current) use of anticoagulants

== ENCOUNTER → 2018-04-09 | Outpatient (CLI) | payer MEDICARE, MEDICAID ==
[2018-04-09 09:31] LABS: INR 2.99; PROTHROMBIN TIME 31.7 SECONDS (12.1-14.4)
== END ==
LOC: M LAB 08:39
PROVIDERS: ATTEND Physician Assistant Medical
DX: Z51.81 Encounter for therapeutic drug level monitoring (principal); Z79.01 Long term (current) use of anticoagulants; I82.5Y9 Chronic embolism and thrombosis of unspecified deep veins of unspecified proximal lower extremity

== ENCOUNTER → 2018-05-12 | Outpatient (CLI) | payer MEDICARE, MEDICAID ==
[2018-05-12 09:31] LABS: INR 2.34; PROTHROMBIN TIME 26.1 SECONDS (12.1-14.4)
== END ==
LOC: M LAB 08:33
PROVIDERS: ATTEND Physician Assistant Medical
DX: I82.5Y9 Chronic embolism and thrombosis of unspecified deep veins of unspecified proximal lower extremity (principal); Z79.01 Long term (current) use of anticoagulants

== ENCOUNTER → 2018-06-12 | Outpatient (CLI) | payer MEDICARE, MEDICAID ==
[~2018-06-12] MED LIST changes: -/WARF5TA; +COUM1TAB17; -ENOX40SY; +HYDR-3715 PO; +LOVE1INJ; -NORCOTAB PO
[2018-06-12 09:33] LABS: INR 2.95; PROTHROMBIN TIME 31.4 SECONDS (12.1-14.4)
== END ==
LOC: M LAB 08:16
PROVIDERS: ATTEND Physician Assistant Medical
DX: I82.519 Chronic embolism and thrombosis of unspecified femoral vein (principal); Z79.01 Long term (current) use of anticoagulants

== ENCOUNTER → 2018-07-17 | Outpatient (CLI) | payer MEDICARE, MEDICAID ==
[2018-07-17 09:20] LABS: INR 3.02
[2018-07-17 10:07] LABS: BLOOD UREA NITROGEN 9 MG/DL (7-18); CALCIUM LEVEL 8.6 MG/DL (8.8-10.2); CARBON DIOXIDE LEVEL 26 MEQ/L (21-32); CHLORIDE LEVEL 100 MEQ/L (98-107); CREATININE FOR GFR 1.03 MG/DL (0.70-1.30); GLOMERULAR FILTRATION RATE > 60.0 (>49); GLUCOSE, FASTING 144 MG/DL (70-100); POTASSIUM SERUM 4.1 MEQ/L (3.5-5.1); SODIUM LEVEL 133 MEQ/L (136-145)
[2018-07-17 11:04] LABS: HEMOGLOBIN A1c 5.3 %
== END ==
LOC: M LAB 08:30
PROVIDERS: ATTEND Physician Assistant Medical
DX: R73.01 Impaired fasting glucose (principal); I82.5Y9 Chronic embolism and thrombosis of unspecified deep veins of unspecified proximal lower extremity; Z79.01 Long term (current) use of anticoagulants

== ENCOUNTER → 2018-08-18 | Outpatient (CLI) | payer MEDICARE, MEDICAID ==
[~2018-08-18] MED LIST changes: -AMLO10TA5; +AMLO10TA5 PO; -LISI40TA; +LISI40TA PO; +WARF-20 PO; -WARF-58; +WARF-58 PO
[2018-08-18 10:02] LABS: INR 3.92; PROTHROMBIN TIME 39.3 SECONDS (12.1-14.4)
== END ==
LOC: M LAB 08:29
PROVIDERS: ATTEND Physician Assistant Medical
DX: Z79.01 Long term (current) use of anticoagulants (principal)

== ENCOUNTER → 2018-09-03 | Outpatient (CLI) | payer MEDICARE, MEDICAID ==
[2018-09-03 08:52] LABS: INR 2.21; PROTHROMBIN TIME 24.3 SECONDS (11.8-14.0)
== END ==
LOC: M LAB 07:54
PROVIDERS: ATTEND Physician Assistant Medical
DX: Z51.81 Encounter for therapeutic drug level monitoring (principal); Z79.01 Long term (current) use of anticoagulants; I82.519 Chronic embolism and thrombosis of unspecified femoral vein

== ENCOUNTER → 2018-10-03 | Outpatient (CLI) | payer MEDICARE, MEDICAID ==
[2018-10-03 08:43] LABS: INR 3.41; PROTHROMBIN TIME 34.4 SECONDS (11.8-14.0)
== END ==
LOC: M LAB 08:02
PROVIDERS: ATTEND Physician Assistant Medical
DX: Z79.01 Long term (current) use of anticoagulants (principal)

== ENCOUNTER → 2018-10-21 | Outpatient (CLI) | payer MEDICARE, MEDICAID ==
[2018-10-21 09:57] LABS: INR 3.05; PROTHROMBIN TIME 31.5 SECONDS (11.8-14.0)
== END ==
LOC: M LAB 08:04
PROVIDERS: ATTEND Physician Assistant Medical
DX: Z79.01 Long term (current) use of anticoagulants (principal)

== ENCOUNTER → 2018-11-07 | Outpatient (CLI) | payer MEDICARE, MEDICAID ==
[2018-11-07 09:07] LABS: INR 2.74; PROTHROMBIN TIME 28.9 SECONDS (11.8-14.0)
[2018-11-07 09:20] LABS: BLOOD UREA NITROGEN 7 MG/DL (7-18); CARBON DIOXIDE LEVEL 28 MEQ/L (21-32); CHLORIDE LEVEL 99 MEQ/L (98-107); CHOLESTEROL LEVEL 163 MG/DL (<200); CHOLESTEROL RISK RATIO 1.963 (<5); CREATININE FOR GFR 1.06 MG/DL (0.70-1.30); GLOMERULAR FILTRATION RATE > 60.0 (>49); GLUCOSE, FASTING 108 MG/DL (70-100); HDL CHOLESTEROL 83 MG/DL (>40); LDL CHOLESTEROL 61 MG/DL (<100); NON-HDL-C 80 MG/DL; POTASSIUM SERUM 4.3 MEQ/L (3.5-5.1); SODIUM LEVEL 134 MEQ/L (136-145); TRIGLYCERIDES LEVEL 96 MG/DL (<150)
== END ==
LOC: M LAB 08:12
PROVIDERS: ATTEND Physician Assistant Medical
DX: I10 Essential (primary) hypertension (principal); Z79.01 Long term (current) use of anticoagulants

== ENCOUNTER → 2018-12-05 | Outpatient (CLI) | payer MEDICARE, MEDICAID ==
[2018-12-05 08:32] LABS: INR 3.14; PROTHROMBIN TIME 32.2 SECONDS (11.8-14.0)
== END ==
LOC: M LAB 07:45
PROVIDERS: ATTEND Physician Assistant Medical
DX: I82.5Y9 Chronic embolism and thrombosis of unspecified deep veins of unspecified proximal lower extremity (principal)

== ENCOUNTER → 2018-12-18 | Outpatient (CLI) | payer MEDICARE, MEDICAID ==
[2018-12-18 08:54] LABS: INR 2.92; PROTHROMBIN TIME 30.4 SECONDS (11.8-14.0)
== END ==
LOC: M LAB 08:07
PROVIDERS: ATTEND Physician Assistant Medical
DX: I82.5Y9 Chronic embolism and thrombosis of unspecified deep veins of unspecified proximal lower extremity (principal)

== ENCOUNTER → 2019-01-21 | Outpatient (CLI) | payer MEDICARE, MEDICAID ==
[2019-01-21 09:34] LABS: PROTHROMBIN TIME 47.7 SECONDS (11.8-14.0)
[2019-01-21 10:40] LABS: INR 5.13
== END ==
LOC: M LAB 08:45
PROVIDERS: ATTEND Physician Assistant Medical
DX: I82.5Y9 Chronic embolism and thrombosis of unspecified deep veins of unspecified proximal lower extremity (principal)

== ENCOUNTER → 2019-01-23 | Outpatient (CLI) | payer MEDICARE, MEDICAID ==
[2019-01-23 09:09] LABS: INR 3.53; PROTHROMBIN TIME 35.4 SECONDS (11.8-14.0)
== END ==
LOC: M LAB 08:15
PROVIDERS: ATTEND Physician Assistant Medical
DX: I82.5Y9 Chronic embolism and thrombosis of unspecified deep veins of unspecified proximal lower extremity (principal)

== ENCOUNTER → 2019-01-28 | Outpatient (CLI) | payer MEDICARE, MEDICAID ==
[2019-01-28 09:23] LABS: INR 3.85; PROTHROMBIN TIME 37.9 SECONDS (11.8-14.0)
== END ==
LOC: M LAB 08:21
PROVIDERS: ATTEND Physician Assistant
DX: I82.5Y9 Chronic embolism and thrombosis of unspecified deep veins of unspecified proximal lower extremity (principal)

== ENCOUNTER → 2019-02-12 | Outpatient (CLI) | payer MEDICARE, MEDICAID ==
[2019-02-12 09:18] LABS: INR 4.13; PROTHROMBIN TIME 40.1 SECONDS (11.8-14.0)
== END ==
LOC: M LAB 08:22
PROVIDERS: ATTEND Physician Assistant Medical
DX: I82.5Y9 Chronic embolism and thrombosis of unspecified deep veins of unspecified proximal lower extremity (principal)

== ENCOUNTER → 2019-02-17 | Outpatient (CLI) | payer MEDICARE, MEDICAID ==
[2019-02-17 08:50] LABS: INR 3.28; PROTHROMBIN TIME 33.4 SECONDS (11.8-14.0)
== END ==
LOC: M LAB 08:11
PROVIDERS: ATTEND Physician Assistant
DX: I82.5Y9 Chronic embolism and thrombosis of unspecified deep veins of unspecified proximal lower extremity (principal)

== ENCOUNTER → 2019-02-23 | Outpatient (CLI) | payer MEDICARE, MEDICAID ==
[2019-02-23 08:42] LABS: INR 3.83; PROTHROMBIN TIME 37.8 SECONDS (11.8-14.0)
== END ==
LOC: M LAB 08:05
PROVIDERS: ATTEND Physician Assistant
DX: I82.5Y9 Chronic embolism and thrombosis of unspecified deep veins of unspecified proximal lower extremity (principal)

== ENCOUNTER → 2019-03-06 | Outpatient (CLI) | payer MEDICARE, MEDICAID ==
[2019-03-06 08:45] LABS: INR 4.14; PROTHROMBIN TIME 40.2 SECONDS (11.8-14.0)
== END ==
LOC: M LAB 07:58
PROVIDERS: ATTEND Physician Assistant
DX: I82.5Y9 Chronic embolism and thrombosis of unspecified deep veins of unspecified proximal lower extremity (principal)

== ENCOUNTER → 2019-03-10 | Outpatient (CLI) | payer MEDICARE, MEDICAID ==
[2019-03-10 09:40] LABS: INR 3.11
== END ==
LOC: M LAB 08:14
PROVIDERS: ATTEND Physician Assistant
DX: I82.5Y9 Chronic embolism and thrombosis of unspecified deep veins of unspecified proximal lower extremity (principal)

== ENCOUNTER → 2019-03-19 | Outpatient (CLI) | payer MEDICARE, MEDICAID ==
[2019-03-19 09:17] LABS: INR 3.14; PROTHROMBIN TIME 32.3 SECONDS (11.8-14.0)
== END ==
LOC: M LAB 08:19
PROVIDERS: ATTEND Physician Assistant Medical
DX: Z51.81 Encounter for therapeutic drug level monitoring (principal); I82.5Y9 Chronic embolism and thrombosis of unspecified deep veins of unspecified proximal lower extremity

== ENCOUNTER → 2019-03-25 | Outpatient (CLI) | payer MEDICARE, MEDICAID ==
[2019-03-25 09:15] LABS: INR 1.78; PROTHROMBIN TIME 20.5 SECONDS (11.8-14.0)
== END ==
LOC: M LAB 08:06
PROVIDERS: ATTEND Physician Assistant
DX: I82.5Y9 Chronic embolism and thrombosis of unspecified deep veins of unspecified proximal lower extremity (principal)

== ENCOUNTER → 2019-03-31 | Outpatient (CLI) | payer MEDICARE, MEDICAID ==
[2019-03-31 09:15] LABS: INR 3.27; PROTHROMBIN TIME 33.3 SECONDS (11.8-14.0)
== END ==
LOC: M LAB 08:26
PROVIDERS: ATTEND Physician Assistant
DX: I82.5Y9 Chronic embolism and thrombosis of unspecified deep veins of unspecified proximal lower extremity (principal)

== ENCOUNTER → 2019-04-20 | Outpatient (CLI) | payer MEDICARE, MEDICAID ==
[2019-04-20 10:44] LABS: INR 5.3
== END ==
LOC: M LAB 08:41
PROVIDERS: ATTEND Physician Assistant Medical
DX: I82.5Y9 Chronic embolism and thrombosis of unspecified deep veins of unspecified proximal lower extremity (principal)

== ENCOUNTER → 2019-04-23 | Outpatient (CLI) | payer MEDICARE, MEDICAID ==
[2019-04-23 09:07] LABS: INR 4.2; PROTHROMBIN TIME 40.7 SECONDS (11.8-14.0)
== END ==
LOC: M LAB 08:20
PROVIDERS: ATTEND Physician Assistant
DX: Z51.81 Encounter for therapeutic drug level monitoring (principal); Z79.01 Long term (current) use of anticoagulants; I82.5Y9 Chronic embolism and thrombosis of unspecified deep veins of unspecified proximal lower extremity

== ENCOUNTER → 2019-04-27 | Outpatient (CLI) | payer MEDICARE, MEDICAID ==
[2019-04-27 08:59] LABS: INR 3.62; PROTHROMBIN TIME 36.1 SECONDS (11.8-14.0)
== END ==
LOC: M LAB 08:08
PROVIDERS: ATTEND Physician Assistant
DX: I82.5Y9 Chronic embolism and thrombosis of unspecified deep veins of unspecified proximal lower extremity (principal)

== ENCOUNTER → 2019-05-01 | Outpatient (CLI) | payer MEDICARE, MEDICAID ==
[2019-05-01 08:54] LABS: BASO % 0.8 % (0.0-1.0); EOS # 0.1 10^3/uL (0.0-0.5); EOS % 1.3 % (0.0-3.0); HEMATOCRIT 42.8 % (42.0-52.0); LYMPH # 1.2 10^3/uL (1.5-5.0); LYMPH % 24.1 % (24.0-44.0); MEAN CORPUSCULAR HEMOGLOBIN 31.4 pg (27.0-33.0); MEAN CORPUSCULAR HGB CONC 35.7 g/dl (32.0-36.5); MEAN CORPUSCULAR VOLUME 87.9 fl (80.0-96.0); MONO # 0.5 10^3/uL (0.0-0.8); MONO % 10.3 % (0.0-5.0); NEUTROPHILS % 63.1 % (36.0-66.0); PLATELET COUNT, AUTOMATED 205 10^3/uL (150-450); RED BLOOD COUNT 4.87 10^6/uL (4.30-6.10); WHITE BLOOD COUNT 4.8 10^3/uL (4.0-10.0)
[2019-05-01 08:56] LABS: HEMOGLOBIN 15.3 g/dl (13.5-17.5)
[2019-05-01 09:00] LABS: INR 2.68; PROTHROMBIN TIME 28.4 SECONDS (11.8-14.0)
[2019-05-01 11:09] LABS: ALBUMIN 3.8 GM/DL (3.2-5.2); ALT/SGPT 43 U/L (12-78); BILIRUBIN,TOTAL 0.7 MG/DL (0.2-1.0); BLOOD UREA NITROGEN 6 MG/DL (7-18); CARBON DIOXIDE LEVEL 27 MEQ/L (21-32); CHLORIDE LEVEL 101 MEQ/L (98-107); CHOLESTEROL LEVEL 182 MG/DL (<200); CHOLESTEROL RISK RATIO 1.433 (<5); CREATININE FOR GFR 1.05 MG/DL (0.70-1.30); GLOMERULAR FILTRATION RATE > 60.0 (>49); GLUCOSE, FASTING 108 MG/DL (70-100); HDL CHOLESTEROL 127 MG/DL (>40); LDL CHOLESTEROL 46 MG/DL (<100); NON-HDL-C 55 MG/DL; POTASSIUM SERUM 4.6 MEQ/L (3.5-5.1); SODIUM LEVEL 134 MEQ/L (136-145); TOTAL PROTEIN 8.1 GM/DL (6.4-8.2); TRIGLYCERIDES LEVEL 46 MG/DL (<150)
[2019-05-01 11:26] LABS: HEMOGLOBIN A1c 5.3 %
== END ==
LOC: M LAB 08:17
PROVIDERS: ATTEND Physician Assistant
DX: R73.01 Impaired fasting glucose (principal); F17.210 Nicotine dependence, cigarettes, uncomplicated; I10 Essential (primary) hypertension; Z79.01 Long term (current) use of anticoagulants

== ENCOUNTER → 2019-05-05 | Outpatient (CLI) | payer MEDICARE, MEDICAID ==
[2019-05-05 09:26] LABS: INR 3.02; PROTHROMBIN TIME 31.2 SECONDS (11.8-14.0)
== END ==
LOC: M LAB 08:02
PROVIDERS: ATTEND Physician Assistant
DX: Z51.81 Encounter for therapeutic drug level monitoring (principal); Z79.01 Long term (current) use of anticoagulants; I82.5Y9 Chronic embolism and thrombosis of unspecified deep veins of unspecified proximal lower extremity

== ENCOUNTER → 2019-05-15 | Outpatient (CLI) | payer MEDICARE, MEDICAID ==
[2019-05-15 09:31] LABS: INR 3.1; PROTHROMBIN TIME 31.9 SECONDS (11.8-14.0)
== END ==
LOC: M LAB 08:19
PROVIDERS: ATTEND Physician Assistant
DX: I82.5Y9 Chronic embolism and thrombosis of unspecified deep veins of unspecified proximal lower extremity (principal)

== ENCOUNTER → 2019-06-01 | Outpatient (CLI) | payer MEDICARE, MEDICAID ==
[2019-06-01 08:53] LABS: INR 3.03; PROTHROMBIN TIME 31.3 SECONDS (11.8-14.0)
== END ==
LOC: M LAB 08:05
PROVIDERS: ATTEND Physician Assistant
DX: Z51.81 Encounter for therapeutic drug level monitoring (principal); Z79.01 Long term (current) use of anticoagulants; I82.5Y9 Chronic embolism and thrombosis of unspecified deep veins of unspecified proximal lower extremity

== ENCOUNTER → 2019-06-18 | Outpatient (CLI) | payer MEDICARE, MEDICAID ==
[2019-06-18 08:36] LABS: INR 3.34; PROTHROMBIN TIME 33.9 SECONDS (11.8-14.0)
== END ==
LOC: M LAB 08:07
PROVIDERS: ATTEND Physician Assistant
DX: I82.5Y9 Chronic embolism and thrombosis of unspecified deep veins of unspecified proximal lower extremity (principal); Z79.01 Long term (current) use of anticoagulants

== ENCOUNTER → 2019-07-21 | Outpatient (CLI) | payer MEDICARE, MEDICAID ==
[2019-07-21 09:19] LABS: INR 3.04; PROTHROMBIN TIME 31.4 SECONDS (11.8-14.0)
== END ==
LOC: M LAB 08:32
PROVIDERS: ATTEND Physician Assistant
DX: I82.5Y9 Chronic embolism and thrombosis of unspecified deep veins of unspecified proximal lower extremity (principal)

== ENCOUNTER → 2019-08-06 | Outpatient (CLI) | payer MEDICARE, MEDICAID ==
[2019-08-06 09:19] LABS: INR 3.05; PROTHROMBIN TIME 31.5 SECONDS (11.8-14.0)
== END ==
LOC: M LAB 08:34
PROVIDERS: ATTEND Physician Assistant
DX: I82.5Y9 Chronic embolism and thrombosis of unspecified deep veins of unspecified proximal lower extremity (principal); Z79.01 Long term (current) use of anticoagulants

== ENCOUNTER → 2019-09-08 | Outpatient (CLI) | payer MEDICARE, MEDICAID ==
[2019-09-08 09:24] LABS: INR 2.98; PROTHROMBIN TIME 30.9 SECONDS (11.8-14.0)
== END ==
LOC: M LAB 08:21
PROVIDERS: ATTEND Physician Assistant
DX: Z51.81 Encounter for therapeutic drug level monitoring (principal); Z79.01 Long term (current) use of anticoagulants; I82.5Y9 Chronic embolism and thrombosis of unspecified deep veins of unspecified proximal lower extremity

== ENCOUNTER → 2019-10-08 | Outpatient (CLI) | payer MEDICARE, MEDICAID ==
[~2019-10-08] MED LIST changes: -AMLO10TA5 PO; +AMLO1TAB24 PO; +AMLO1TAB25 PO; -AMLO5TAB6 PO; +ROBA750T4 PO
[2019-11-07 13:08] LABS: INR 2.1
== END ==
LOC: M LAB 08:25
PROVIDERS: ATTEND Physician Assistant
DX: I82.5Y9 Chronic embolism and thrombosis of unspecified deep veins of unspecified proximal lower extremity (principal)

== ENCOUNTER → 2019-11-12 | Outpatient (CLI) | payer MEDICARE, MEDICAID ==
[2019-11-12 09:29] LABS: INR 2.04; PROTHROMBIN TIME 23.5 SECONDS (11.8-14.0)
== END ==
LOC: M LAB 08:28
PROVIDERS: ATTEND Physician Assistant
DX: I82.5Y9 Chronic embolism and thrombosis of unspecified deep veins of unspecified proximal lower extremity (principal)

== ENCOUNTER 2019-11-23 09:56 | Emergency (ER) | payer MEDICARE, MEDICAID ==
[~2019-11-23] VITALS: Ht 177.8 cm; Wt 81.3 kg
[2019-11-23 09:56] VITALS: BP 118/76
[~2019-11-23 09:56] MED LIST changes: -ROBA750T4 PO
[2019-11-23] MEDS ORDERED: ROBA750T4 PO (11:13)
== END 2019-11-23 11:34 | disposition home or self-care (01) ==
LOC: M ED 09:56
DX: S16.1XXA Strain of muscle, fascia and tendon at neck level, initial encounter (principal); X58.XXXA Exposure to other specified factors, initial encounter; Y92.9 Unspecified place or not applicable; Y93.9 Activity, unspecified; Y99.9 Unspecified external cause status; I10 Essential (primary) hypertension; Z86.718 Personal history of other venous thrombosis and embolism; F17.200 Nicotine dependence, unspecified, uncomplicated; Z79.01 Long term (current) use of anticoagulants; Z79.899 Other long term (current) drug therapy

== ENCOUNTER → 2019-12-17 | Outpatient (CLI) | payer MEDICARE, MEDICAID ==
[~2019-12-17] MED LIST changes: +ROBA750T4 PO
[2019-12-17 11:42] LABS: BLOOD UREA NITROGEN 6 MG/DL (7-18); CARBON DIOXIDE LEVEL 29 MEQ/L (21-32); CHLORIDE LEVEL 99 MEQ/L (98-107); CHOLESTEROL LEVEL 165 MG/DL (<200); CHOLESTEROL RISK RATIO 1.755 (<5); CREATININE FOR GFR 1.08 MG/DL (0.70-1.30); GLOMERULAR FILTRATION RATE > 60.0 (>49); GLUCOSE, FASTING 101 MG/DL (70-100); HDL CHOLESTEROL 94 MG/DL (>40); LDL CHOLESTEROL 60 MG/DL (<100); NON-HDL-C 71 MG/DL; POTASSIUM SERUM 4.3 MEQ/L (3.5-5.1); SODIUM LEVEL 132 MEQ/L (136-145); TRIGLYCERIDES LEVEL 54 MG/DL (<150)
--- NOTE | 2019-12-21 14:34 | REP ---
CT CHEST WITHOUT CONTRAST: LOW-DOSE SCREENING EXAM HISTORY: Nicotine dependence. COMPARISON CT CHEST STUDY: 07/02/2009. CT FINDINGS: Preliminary digital green pipefitter radiograph demonstrates that the patient is rotated slightly to the right. There is an area of linear fibrosis visible on axial CT images in the right base posteriorly. No pulmonary mass or nodule is appreciated. Vascular calcification seen and there appear to be gallstones. The study is otherwise unremarkable. IMPRESSION: Lung-RADS Category 1 findings. Repeat screening exam suggested in one year. MTDD
== END ==
LOC: M RAD 08:18
PROVIDERS: ATTEND Physician Assistant Medical
DX: Z12.2 Encounter for screening for malignant neoplasm of respiratory organs (principal); I10 Essential (primary) hypertension; F17.210 Nicotine dependence, cigarettes, uncomplicated; I82.5Y9 Chronic embolism and thrombosis of unspecified deep veins of unspecified proximal lower extremity; Z79.01 Long term (current) use of anticoagulants
CPT/HCPCS: 36415; 80048; 80061; 85610; G0297

== ENCOUNTER → 2019-12-17 | Outpatient (CLI) | payer MEDICARE, MEDICAID ==
[2019-12-17 11:18] LABS: INR 3.45; PROTHROMBIN TIME 35.5 SECONDS (12.5-14.3)
== END ==
LOC: M LAB 08:24
PROVIDERS: ATTEND Physician Assistant
DX: I82.5Y9 Chronic embolism and thrombosis of unspecified deep veins of unspecified proximal lower extremity (principal); Z79.01 Long term (current) use of anticoagulants

== ENCOUNTER → 2019-12-22 | Outpatient (CLI) | payer MEDICARE, MEDICAID ==
[2019-12-22 10:05] LABS: INR 2.77; PROTHROMBIN TIME 29.9 SECONDS (12.5-14.3)
== END ==
LOC: M LAB 08:37
PROVIDERS: ATTEND Physician Assistant
DX: I82.5Y9 Chronic embolism and thrombosis of unspecified deep veins of unspecified proximal lower extremity (principal)

== ENCOUNTER → 2019-12-28 | Outpatient (CLI) | payer MEDICARE, MEDICAID ==
[2019-12-28 11:53] LABS: INR 2.78
== END ==
LOC: M LAB 09:29
PROVIDERS: ATTEND Physician Assistant
DX: I82.5Y9 Chronic embolism and thrombosis of unspecified deep veins of unspecified proximal lower extremity (principal); Z79.899 Other long term (current) drug therapy

== ENCOUNTER → 2020-02-03 | Outpatient (CLI) | payer MEDICARE, MEDICAID ==
[2020-02-03 09:26] LABS: INR 2.67
== END ==
LOC: M LAB 08:30
PROVIDERS: ATTEND Physician Assistant Medical
DX: I27.82 Chronic pulmonary embolism (principal); Z79.01 Long term (current) use of anticoagulants

== ENCOUNTER → 2020-03-14 | Outpatient (CLI) | payer MEDICARE, MEDICAID ==
[2020-03-14 09:29] LABS: INR 2.95; PROTHROMBIN TIME 31.4 SECONDS (12.5-14.3)
== END ==
LOC: M LAB 08:15
PROVIDERS: ATTEND Physician Assistant Medical
DX: I27.82 Chronic pulmonary embolism (principal); Z79.01 Long term (current) use of anticoagulants

== ENCOUNTER → 2020-04-20 | Outpatient (CLI) | payer MEDICARE, MEDICAID ==
[~2020-04-20] MED LIST changes: -LISI-538 PO; +LISI20TA33 PO; -LISI40TA PO; +LISI40TA4 PO
[2020-04-20 09:32] LABS: PROTHROMBIN TIME 31.8 SECONDS (12.5-14.3)
== END ==
LOC: M LAB 08:15
PROVIDERS: ATTEND Physician Assistant Medical
DX: I26.99 Other pulmonary embolism without acute cor pulmonale (principal)

== ENCOUNTER → 2020-05-19 | Outpatient (CLI) | payer MEDICARE, MEDICAID ==
[2020-05-19 10:12] LABS: INR 1.95; PROTHROMBIN TIME 22.7 SECONDS (12.5-14.3)
== END ==
LOC: M LAB 08:40
PROVIDERS: ATTEND Physician Assistant Medical
DX: I27.82 Chronic pulmonary embolism (principal); Z79.01 Long term (current) use of anticoagulants

== ENCOUNTER → 2020-05-27 | Outpatient (CLI) | payer MEDICARE, MEDICAID ==
[2020-05-27 09:27] LABS: INR 2.35; PROTHROMBIN TIME 26.2 SECONDS (12.5-14.3)
[2020-05-27 09:47] LABS: ALBUMIN 3.7 GM/DL (3.2-5.2); ALT/SGPT 35 U/L (12-78); BILIRUBIN,TOTAL 0.6 MG/DL (0.2-1.0); BLOOD UREA NITROGEN 7 MG/DL (7-18); CALCIUM LEVEL 9.1 MG/DL (8.8-10.2); CARBON DIOXIDE LEVEL 27 MEQ/L (21-32); CHLORIDE LEVEL 99 MEQ/L (98-107); CHOLESTEROL LEVEL 180 MG/DL (<200); CHOLESTEROL RISK RATIO 1.384 (<5); CREATININE FOR GFR 1.06 MG/DL (0.70-1.30); GLOMERULAR FILTRATION RATE > 60.0 (>49); GLUCOSE, FASTING 108 MG/DL (70-100); HDL CHOLESTEROL 130 MG/DL (>40); LDL CHOLESTEROL 39 MG/DL (<100); NON-HDL-C 50 MG/DL; POTASSIUM SERUM 4.7 MEQ/L (3.5-5.1); SODIUM LEVEL 132 MEQ/L (136-145); TOTAL PROTEIN 7.8 GM/DL (6.4-8.2); TRIGLYCERIDES LEVEL 53 MG/DL (<150)
[2020-05-27 10:27] LABS: HEMOGLOBIN A1c 5.1 %
== END ==
LOC: M LAB 08:37
PROVIDERS: ATTEND Physician Assistant Medical
DX: I27.82 Chronic pulmonary embolism (principal); R73.01 Impaired fasting glucose; Z79.01 Long term (current) use of anticoagulants; Z79.899 Other long term (current) drug therapy

== ENCOUNTER → 2020-06-22 | Outpatient (CLI) | payer MEDICARE, MEDICAID ==
[2020-06-22 09:38] LABS: INR 2.81; PROTHROMBIN TIME 30.3 SECONDS (12.5-14.3)
== END ==
LOC: M LAB 08:13
PROVIDERS: ATTEND Physician Assistant Medical
DX: I27.82 Chronic pulmonary embolism (principal); Z79.01 Long term (current) use of anticoagulants

== ENCOUNTER 2020-06-30 21:04 | Emergency (ER) | payer MEDICARE, MEDICAID ==
[2020-06-30 21:12] VITALS: BP 136/77
[2020-06-30] MEDS ORDERED: LORA-674 (21:23)
[2020-06-30] MEDS ORDERED: CEPH500C PO (23:48)
[2020-06-30] MEDS ORDERED: CEPHALEXIN 500 MG CAP PO ONE (23:55)
== END 2020-06-30 23:59 | disposition home or self-care (01) ==
LOC: M ED 21:04
DX: S61.419A Laceration without foreign body of unspecified hand, initial encounter (principal); W19.XXXA Unspecified fall, initial encounter; Y92.093 Driveway of other non-institutional residence as the place of occurrence of the external cause; Y93.9 Activity, unspecified; Y99.9 Unspecified external cause status; I10 Essential (primary) hypertension; F10.10 Alcohol abuse, uncomplicated; F17.200 Nicotine dependence, unspecified, uncomplicated; Z86.711 Personal history of pulmonary embolism; Z79.02 Long term (current) use of antithrombotics/antiplatelets; Z79.899 Other long term (current) drug therapy

== ENCOUNTER 2020-07-04 09:23 | Emergency (ER) | payer MEDICARE, MEDICAID ==
[~2020-07-04] VITALS: Ht 177.8 cm; Wt 77.6 kg
[~2020-07-04 09:23] MED LIST changes: +CEPH500C PO; +LORA-674
[2020-07-04 09:25] VITALS: BP 144/83
== END 2020-07-04 10:54 | disposition home or self-care (01) ==
LOC: M ED 09:23
DX: Z48.01 Encounter for change or removal of surgical wound dressing (principal); I10 Essential (primary) hypertension; D66 Hereditary factor VIII deficiency; Z86.711 Personal history of pulmonary embolism; Z86.718 Personal history of other venous thrombosis and embolism; Z79.02 Long term (current) use of antithrombotics/antiplatelets; Z79.899 Other long term (current) drug therapy

== ENCOUNTER → 2020-07-25 | Outpatient (CLI) | payer MEDICARE, MEDICAID ==
[2020-07-25 09:23] LABS: INR 2.62; PROTHROMBIN TIME 28.6 SECONDS (12.5-14.3)
== END ==
LOC: M LAB 08:41
PROVIDERS: ATTEND Physician Assistant Medical
DX: I27.82 Chronic pulmonary embolism (principal); Z79.01 Long term (current) use of anticoagulants

== ENCOUNTER 2020-08-02 14:06 | Emergency (ER) | payer MEDICARE, MEDICAID ==
[~2020-08-02] VITALS: Ht 180.3 cm; Wt 77.3 kg
[2020-08-02 14:06] VITALS: BP 130/74
--- NOTE | 2020-08-02 16:23 | REP ---
INDICATION: swelling/ previous trauma COMPARISON: None. TECHNIQUE: AP, lateral, bilateral oblique views left hand. FINDINGS: Age-related osteoarthritic degenerative changes are appreciated. Swelling overlies primarily the metacarpal region of the hand without subcutaneous emphysema or foreign body. No obvious acute fracture or dislocation. 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 No evidence for acute fracture or dislocation. <Electronically signed by Jad Tay > 08/02/20 [id number]
[2020-08-02 16:28] LABS: BASO % 0.5 % (0.0-1.0); EOS # 0.1 10^3/uL (0.0-0.5); EOS % 0.9 % (0.0-3.0); HEMATOCRIT 37.1 % (42.0-52.0); HEMOGLOBIN 13.7 g/dl (13.5-17.5); LYMPH # 1.4 10^3/uL (1.5-5.0); LYMPH % 21.1 % (24.0-44.0); MEAN CORPUSCULAR HEMOGLOBIN 31.4 pg (27.0-33.0); MEAN CORPUSCULAR HGB CONC 36.9 g/dl (32.0-36.5); MEAN CORPUSCULAR VOLUME 85.1 fl (80.0-96.0); MONO # 0.5 10^3/uL (0.0-0.8); NEUTROPHILS # 4.5 10^3/uL (1.5-8.5); NEUTROPHILS % 69.9 % (36.0-66.0); PLATELET COUNT, AUTOMATED 190 10^3/uL (150-450); RED BLOOD COUNT 4.36 10^6/uL (4.30-6.10); WHITE BLOOD COUNT 6.4 10^3/uL (4.0-10.0)
[2020-08-02 16:34] LABS: INR 3.97; PROTHROMBIN TIME 39.7 SECONDS (12.5-14.3)
[2020-08-02 16:35] LABS: PARTIAL THROMBOPLASTIN TIME 63.2 SECONDS (24.2-38.5)
[2020-08-02] MEDS ORDERED: NS 1,000 ML IV ONE (16:40)
[2020-08-02 16:51] LABS: ERYTHROCYTE SEDIMENTATION RATE 27 mm/hr (0-20)
== END 2020-08-02 16:59 | disposition home or self-care (01) ==
LOC: M ED 14:06
DX: R79.89 Other specified abnormal findings of blood chemistry (principal); S60.222A Contusion of left hand, initial encounter; W01.0XXA Fall on same level from slipping, tripping and stumbling without subsequent striking against object, initial encounter; Y92.89 Other specified places as the place of occurrence of the external cause; I10 Essential (primary) hypertension; I27.82 Chronic pulmonary embolism; Z86.718 Personal history of other venous thrombosis and embolism; Z79.899 Other long term (current) drug therapy; Z79.01 Long term (current) use of anticoagulants; F17.210 Nicotine dependence, cigarettes, uncomplicated

== ENCOUNTER → 2020-08-04 | Outpatient (REF) | payer MEDICARE, MEDICAID ==
[2020-08-04 15:52] LABS: OSMOLALITY URINE 147 MOSM/KG (50-1400)
[2020-08-04 17:40] LABS: SODIUM,RANDOM URINE < 10 MEQ/L
== END ==
LOC: M LAB REF 15:14
PROVIDERS: ATTEND Nurse Practitioner Family
DX: E87.1 Hypo-osmolality and hyponatremia (principal)

== ENCOUNTER → 2020-08-29 | Outpatient (CLI) | payer MEDICARE, MEDICAID ==
[2020-08-29 09:46] LABS: INR 7.87
== END ==
LOC: M LAB 08:43
PROVIDERS: ATTEND Physician Assistant Medical
DX: I27.82 Chronic pulmonary embolism (principal); Z79.01 Long term (current) use of anticoagulants

== ENCOUNTER → 2020-08-31 | Outpatient (CLI) | payer MEDICARE, MEDICAID ==
[2020-08-31 10:32] LABS: INR 4.91; PROTHROMBIN TIME 46.9 SECONDS (12.5-14.3)
== END ==
LOC: M LAB 09:11
PROVIDERS: ATTEND Physician Assistant Medical
DX: Z51.81 Encounter for therapeutic drug level monitoring (principal); Z79.01 Long term (current) use of anticoagulants; I27.82 Chronic pulmonary embolism

== ENCOUNTER → 2020-08-31 | Outpatient (CLI) | payer MEDICARE, MEDICAID ==
[2020-08-31 10:19] LABS: BASO % 0.6 % (0.0-1.0); EOS # 0.1 10^3/uL (0.0-0.5); EOS % 2.4 % (0.0-3.0); HEMATOCRIT 27.6 % (42.0-52.0); HEMOGLOBIN 9.8 g/dl (13.5-17.5); LYMPH # 0.8 10^3/uL (1.5-5.0); LYMPH % 17.8 % (24.0-44.0); MEAN CORPUSCULAR HEMOGLOBIN 32.2 pg (27.0-33.0); MEAN CORPUSCULAR HGB CONC 35.5 g/dl (32.0-36.5); MEAN CORPUSCULAR VOLUME 90.8 fl (80.0-96.0); MONO # 0.4 10^3/uL (0.0-0.8); MONO % 8.1 % (2.0-8.0); NEUTROPHILS # 3.3 10^3/uL (1.5-8.5); NEUTROPHILS % 70.2 % (36.0-66.0); PLATELET COUNT, AUTOMATED 254 10^3/uL (150-450); RED BLOOD COUNT 3.04 10^6/uL (4.30-6.10); WHITE BLOOD COUNT 4.7 10^3/uL (4.0-10.0)
[2020-08-31 10:58] LABS: ALBUMIN 3.3 GM/DL (3.2-5.2); ALT/SGPT 19 U/L (12-78); BILIRUBIN,TOTAL 1.4 MG/DL (0.2-1.0); BLOOD UREA NITROGEN 9 MG/DL (7-18); CALCIUM LEVEL 8.9 MG/DL (8.8-10.2); CARBON DIOXIDE LEVEL 21 MEQ/L (21-32); CHLORIDE LEVEL 98 MEQ/L (98-107); FREE T4 1.26 NG/DL (0.76-1.46); GLOMERULAR FILTRATION RATE > 60.0 (>49); GLUCOSE, FASTING 128 MG/DL (70-100); POTASSIUM SERUM 4.3 MEQ/L (3.5-5.1); SODIUM LEVEL 128 MEQ/L (136-145); TOTAL PROTEIN 7.1 GM/DL (6.4-8.2)
== END ==
LOC: M LAB 08:49
PROVIDERS: ATTEND Nurse Practitioner Family
DX: R53.83 Other fatigue (principal); I10 Essential (primary) hypertension; R53.1 Weakness; R73.01 Impaired fasting glucose; Z51.81 Encounter for therapeutic drug level monitoring; Z79.01 Long term (current) use of anticoagulants; I27.82 Chronic pulmonary embolism

== ENCOUNTER → 2020-09-02 | Outpatient (CLI) | payer MEDICARE, MEDICAID ==
[2020-09-02 09:39] LABS: INR 2.9
== END ==
LOC: M LAB 08:32
PROVIDERS: ATTEND Physician Assistant Medical
DX: I27.82 Chronic pulmonary embolism (principal); Z79.01 Long term (current) use of anticoagulants

== ENCOUNTER → 2020-09-02 | Outpatient (CLI) | payer MEDICARE, MEDICAID ==
[2020-09-02 09:29] LABS: BASO % 0.8 % (0.0-1.0); EOS # 0.2 10^3/uL (0.0-0.5); EOS % 3.3 % (0.0-3.0); HEMATOCRIT 25.5 % (42.0-52.0); HEMOGLOBIN 8.9 g/dl (13.5-17.5); LYMPH # 0.8 10^3/uL (1.5-5.0); LYMPH % 15.8 % (24.0-44.0); MEAN CORPUSCULAR HEMOGLOBIN 32.2 pg (27.0-33.0); MEAN CORPUSCULAR HGB CONC 34.9 g/dl (32.0-36.5); MEAN CORPUSCULAR VOLUME 92.4 fl (80.0-96.0); MONO # 0.4 10^3/uL (0.0-0.8); NEUTROPHILS # 3.5 10^3/uL (1.5-8.5); NEUTROPHILS % 71.7 % (36.0-66.0); PLATELET COUNT, AUTOMATED 233 10^3/uL (150-450); RED BLOOD COUNT 2.76 10^6/uL (4.30-6.10); WHITE BLOOD COUNT 4.9 10^3/uL (4.0-10.0)
[2020-09-02 10:04] LABS: ALBUMIN 3.1 GM/DL (3.2-5.2); ALT/SGPT 16 U/L (12-78); BILIRUBIN,TOTAL 1.3 MG/DL (0.2-1.0); BLOOD UREA NITROGEN 10 MG/DL (7-18); CALCIUM LEVEL 8.8 MG/DL (8.8-10.2); CARBON DIOXIDE LEVEL 22 MEQ/L (21-32); CHLORIDE LEVEL 99 MEQ/L (98-107); CREATININE FOR GFR 1.06 MG/DL (0.70-1.30); FREE T4 1.19 NG/DL (0.76-1.46); GLOMERULAR FILTRATION RATE > 60.0 (>49); GLUCOSE, FASTING 103 MG/DL (70-100); POTASSIUM SERUM 4.5 MEQ/L (3.5-5.1); SODIUM LEVEL 127 MEQ/L (136-145); TOTAL PROTEIN 6.8 GM/DL (6.4-8.2)
== END ==
LOC: M LAB 08:28
PROVIDERS: ATTEND Nurse Practitioner Family
DX: I10 Essential (primary) hypertension (principal); R53.83 Other fatigue; R53.1 Weakness; R73.01 Impaired fasting glucose; I27.82 Chronic pulmonary embolism; Z79.01 Long term (current) use of anticoagulants

== ENCOUNTER 2020-09-07 10:41 | Emergency (ER) | payer MEDICARE, MEDICAID ==
[~2020-09-07] VITALS: Ht 177.8 cm; Wt 70.9 kg
[~2020-09-07 10:41] MED LIST changes: -FERR325T3; -SERT50TA29; -TRAM50TA2
[2020-09-07 12:02] LABS: BASO % 0.6 % (0.0-1.0); EOS % 0.4 % (0.0-3.0); HEMATOCRIT 27.3 % (42.0-52.0); HEMOGLOBIN 9.6 g/dl (13.5-17.5); LYMPH # 0.7 10^3/uL (1.5-5.0); LYMPH % 12.8 % (24.0-44.0); MEAN CORPUSCULAR HEMOGLOBIN 32.7 pg (27.0-33.0); MEAN CORPUSCULAR HGB CONC 35.2 g/dl (32.0-36.5); MEAN CORPUSCULAR VOLUME 92.9 fl (80.0-96.0); MONO # 0.4 10^3/uL (0.0-0.8); NEUTROPHILS # 4.2 10^3/uL (1.5-8.5); NEUTROPHILS % 77.6 % (36.0-66.0); PLATELET COUNT, AUTOMATED 240 10^3/uL (150-450); RED BLOOD COUNT 2.94 10^6/uL (4.30-6.10); WHITE BLOOD COUNT 5.4 10^3/uL (4.0-10.0)
[2020-09-07 12:22] LABS: PROTHROMBIN TIME 56.8 SECONDS (12.5-14.3)
[2020-09-07 12:23] LABS: CALCIUM LEVEL 8.9 MG/DL (8.8-10.2); CREATININE FOR GFR 1.28 MG/DL (0.70-1.30); GLOMERULAR FILTRATION RATE 59.9 (>49); POTASSIUM SERUM 4.2 MEQ/L (3.5-5.1)
[2020-09-07 12:28] LABS: INR 6.26
[2020-09-07 12:59] LABS: PARTIAL THROMBOPLASTIN TIME > 240.0 SECONDS (24.2-38.5)
[2020-09-07] MEDS ORDERED: NS 1,000 ML IV ONE (15:30)
[2020-09-07] MEDS ORDERED: PHYTONADIONE 5 MG TAB PO ONE (15:35)
[2020-09-07 17:30] VITALS: BP 118/72
== END 2020-09-07 17:55 | disposition home or self-care (01) ==
LOC: M ED 10:41
DX: D68.8 Other specified coagulation defects (principal); E87.1 Hypo-osmolality and hyponatremia; I10 Essential (primary) hypertension; F17.200 Nicotine dependence, unspecified, uncomplicated; Z79.899 Other long term (current) drug therapy; Z51.81 Encounter for therapeutic drug level monitoring; Z79.01 Long term (current) use of anticoagulants; R53.83 Other fatigue; R53.1 Weakness; R73.01 Impaired fasting glucose

== ENCOUNTER → 2020-09-07 | Outpatient (CLI) | payer MEDICARE, MEDICAID ==
[~2020-09-07] MED LIST changes: +FERR325T3; +SERT50TA29; +TRAM50TA2
[2020-09-07 09:35] LABS: BASO % 0.6 % (0.0-1.0); EOS % 0.6 % (0.0-3.0); HEMATOCRIT 25.5 % (42.0-52.0); HEMOGLOBIN 8.9 g/dl (13.5-17.5); LYMPH # 0.6 10^3/uL (1.5-5.0); LYMPH % 11.6 % (24.0-44.0); MEAN CORPUSCULAR HEMOGLOBIN 32.4 pg (27.0-33.0); MEAN CORPUSCULAR HGB CONC 34.9 g/dl (32.0-36.5); MEAN CORPUSCULAR VOLUME 92.7 fl (80.0-96.0); MONO # 0.5 10^3/uL (0.0-0.8); NEUTROPHILS # 4.1 10^3/uL (1.5-8.5); NEUTROPHILS % 77.6 % (36.0-66.0); PLATELET COUNT, AUTOMATED 236 10^3/uL (150-450); RED BLOOD COUNT 2.75 10^6/uL (4.30-6.10); WHITE BLOOD COUNT 5.3 10^3/uL (4.0-10.0)
[2020-09-07 09:46] LABS: INR 4.94; PROTHROMBIN TIME 47.1 SECONDS (12.5-14.3)
[2020-09-07 10:16] LABS: ALBUMIN 3.2 GM/DL (3.2-5.2); ALT/SGPT 16 U/L (12-78); BILIRUBIN,TOTAL 1.4 MG/DL (0.2-1.0); BLOOD UREA NITROGEN 13 MG/DL (7-18); CARBON DIOXIDE LEVEL 20 MEQ/L (21-32); CHLORIDE LEVEL 98 MEQ/L (98-107); CREATININE FOR GFR 1.16 MG/DL (0.70-1.30); FREE T4 1.23 NG/DL (0.76-1.46); GLOMERULAR FILTRATION RATE > 60.0 (>49); GLUCOSE, FASTING 99 MG/DL (70-100); POTASSIUM SERUM 4.4 MEQ/L (3.5-5.1); SODIUM LEVEL 129 MEQ/L (136-145)
== END ==
LOC: M LAB 09:06
PROVIDERS: ATTEND Nurse Practitioner Family
DX: Z51.81 Encounter for therapeutic drug level monitoring (principal); Z79.01 Long term (current) use of anticoagulants; R53.83 Other fatigue; R53.1 Weakness; I10 Essential (primary) hypertension; R73.01 Impaired fasting glucose

== ENCOUNTER 2020-09-09 12:30 | Emergency (ER) | payer MEDICARE, MEDICAID ==
[~2020-09-09] VITALS: Ht 177.8 cm; Wt 70.9 kg
[~2020-09-09 12:30] MED LIST changes: -FERR325T3; -SERT50TA29; -TRAM50TA2
[2020-09-09 12:31] VITALS: BP_DIAS 71
[2020-09-09] MEDS ORDERED: FERR325T3 (12:43)
[2020-09-09] MEDS ORDERED: TRAM50TA2 (12:43)
[2020-09-09] MEDS ORDERED: SERT50TA29 (12:44)
[2020-09-09 14:54] LABS: BASO % 0.4 % (0.0-1.0); EOS % 0.4 % (0.0-3.0); HEMATOCRIT 24.1 % (42.0-52.0); HEMOGLOBIN 8.4 g/dl (13.5-17.5); LYMPH # 0.7 10^3/uL (1.5-5.0); LYMPH % 15.5 % (24.0-44.0); MEAN CORPUSCULAR HEMOGLOBIN 32.4 pg (27.0-33.0); MEAN CORPUSCULAR HGB CONC 34.9 g/dl (32.0-36.5); MEAN CORPUSCULAR VOLUME 93.1 fl (80.0-96.0); MONO # 0.3 10^3/uL (0.0-0.8); MONO % 6.4 % (2.0-8.0); NEUTROPHILS # 3.6 10^3/uL (1.5-8.5); NEUTROPHILS % 76.7 % (36.0-66.0); PLATELET COUNT, AUTOMATED 233 10^3/uL (150-450); RED BLOOD COUNT 2.59 10^6/uL (4.30-6.10); WHITE BLOOD COUNT 4.7 10^3/uL (4.0-10.0)
[2020-09-09 15:08] LABS: INR 1.35
[2020-09-09 15:09] LABS: PARTIAL THROMBOPLASTIN TIME 33.9 SECONDS (24.2-38.5)
[2020-09-09 15:14] LABS: ALBUMIN 3.3 GM/DL (3.2-5.2); BILIRUBIN,DIRECT 0.6 MG/DL (0.0-0.2); BILIRUBIN,TOTAL 1.7 MG/DL (0.2-1.0)
[2020-09-09 15:38] VITALS: BP_SYST 126
== END 2020-09-09 15:35 | disposition home or self-care (01) ==
LOC: M ED 12:30
DX: R79.9 Abnormal finding of blood chemistry, unspecified (principal); I25.10 Atherosclerotic heart disease of native coronary artery without angina pectoris; I10 Essential (primary) hypertension; E78.5 Hyperlipidemia, unspecified; M54.9 Dorsalgia, unspecified; Z86.718 Personal history of other venous thrombosis and embolism; F17.200 Nicotine dependence, unspecified, uncomplicated; Z79.01 Long term (current) use of anticoagulants; Z79.899 Other long term (current) drug therapy

== ENCOUNTER → 2020-09-09 | Outpatient (CLI) | payer MEDICARE, MEDICAID ==
[~2020-09-09] MED LIST changes: +FERR325T3; +SERT50TA29; +TRAM50TA2
[2020-09-09 10:37] LABS: INR 1.36; PROTHROMBIN TIME 17.1 SECONDS (12.5-14.3)
== END ==
LOC: M LAB 09:02
PROVIDERS: ATTEND Nurse Practitioner Family
DX: Z79.01 Long term (current) use of anticoagulants (principal)

== ENCOUNTER → 2020-09-13 | Outpatient (CLI) | payer MEDICARE, MEDICAID ==
[~2020-09-13] MED LIST changes: +FERR325T3; +SERT50TA29; +TRAM50TA2
[2020-09-13 10:39] LABS: INR 1.51; PROTHROMBIN TIME 18.5 SECONDS (12.5-14.3)
== END ==
LOC: M LAB 09:05
PROVIDERS: ATTEND Nurse Practitioner Family
DX: Z51.81 Encounter for therapeutic drug level monitoring (principal); Z79.01 Long term (current) use of anticoagulants

== ENCOUNTER → 2020-09-15 | Outpatient (CLI) | payer MEDICARE, MEDICAID ==
--- NOTE | 2020-09-15 09:12 | REP ---
INDICATION: ELEVATION OF LEVELS OF LIVER TRANSAMINASE LEVELS- LABS AFTER COMPARISON: None. TECHNIQUE: Real time lucas scale ultrasound examination using curved array transducer. FINDINGS: Liver is normal in contour, size, and echogenicity without focal hepatic lesions identified. Pancreas is incompletely evaluated due to interposed bowel gas. The gallbladder demonstrates multiple mobile gallstones without wall thickening or pericholecystic fluid. No biliary ductal dilatation is appreciated and the common bile duct measures 3.0 mm diameter. Right kidney is normal in reniform shape without hydronephrosis and measures 9.3 x 6.5 x 5.8 cm. No ascites in the visualized right upper quadrant. IMPRESSION: Cholelithiasis. Otherwise normal right upper quadrant ultrasound. <Electronically signed by Jad Tay > 09/15/20 [id number]
[2020-09-15 11:16] LABS: BASO % 0.5 % (0.0-1.0); EOS % 0.9 % (0.0-3.0); HEMATOCRIT 29.1 % (42.0-52.0); LYMPH # 0.7 10^3/uL (1.5-5.0); LYMPH % 15.1 % (24.0-44.0); MEAN CORPUSCULAR HEMOGLOBIN 32.8 pg (27.0-33.0); MEAN CORPUSCULAR HGB CONC 34.4 g/dl (32.0-36.5); MEAN CORPUSCULAR VOLUME 95.4 fl (80.0-96.0); MONO # 0.3 10^3/uL (0.0-0.8); MONO % 7.4 % (2.0-8.0); NEUTROPHILS # 3.3 10^3/uL (1.5-8.5); NEUTROPHILS % 75.6 % (36.0-66.0); PLATELET COUNT, AUTOMATED 252 10^3/uL (150-450); RED BLOOD COUNT 3.05 10^6/uL (4.30-6.10); WHITE BLOOD COUNT 4.3 10^3/uL (4.0-10.0)
== END ==
LOC: M RAD 08:35
PROVIDERS: ATTEND Family Medicine
DX: R74.01 Elevation of levels of liver transaminase levels (principal); K80.80 Other cholelithiasis without obstruction

== ENCOUNTER → 2020-10-05 | Outpatient (CLI) | payer MEDICARE, MEDICAID ==
[2020-10-05 09:25] LABS: INR 1.06
== END ==
LOC: M LAB 08:40
PROVIDERS: ATTEND Nurse Practitioner Family
DX: Z79.01 Long term (current) use of anticoagulants (principal)

== ENCOUNTER → 2020-10-07 | Outpatient (CLI) | payer MEDICARE, MEDICAID ==
[2020-10-07 09:13] LABS: BASO % 0.9 % (0.0-1.0); EOS # 0.1 10^3/uL (0.0-0.5); EOS % 1.4 % (0.0-3.0); HEMATOCRIT 38.2 % (42.0-52.0); LYMPH # 1.3 10^3/uL (1.5-5.0); LYMPH % 29.8 % (24.0-44.0); MEAN CORPUSCULAR HEMOGLOBIN 32.2 pg (27.0-33.0); MEAN CORPUSCULAR VOLUME 94.6 fl (80.0-96.0); MONO # 0.4 10^3/uL (0.0-0.8); MONO % 8.8 % (2.0-8.0); NEUTROPHILS # 2.6 10^3/uL (1.5-8.5); NEUTROPHILS % 58.6 % (36.0-66.0); PLATELET COUNT, AUTOMATED 215 10^3/uL (150-450); RED BLOOD COUNT 4.04 10^6/uL (4.30-6.10); WHITE BLOOD COUNT 4.4 10^3/uL (4.0-10.0)
[2020-10-07 09:34] LABS: ALBUMIN 3.3 GM/DL (3.2-5.2); ALT/SGPT 17 U/L (12-78); BILIRUBIN,DIRECT 0.3 MG/DL (0.0-0.2); BILIRUBIN,TOTAL 0.7 MG/DL (0.2-1.0); BLOOD UREA NITROGEN 7 MG/DL (7-18); CALCIUM LEVEL 9.5 MG/DL (8.8-10.2); CARBON DIOXIDE LEVEL 26 MEQ/L (21-32); CHLORIDE LEVEL 105 MEQ/L (98-107); CREATININE FOR GFR 1.08 MG/DL (0.70-1.30); GLOMERULAR FILTRATION RATE > 60.0 (>49); GLUCOSE, FASTING 106 MG/DL (70-100); POTASSIUM SERUM 4.1 MEQ/L (3.5-5.1); SODIUM LEVEL 136 MEQ/L (136-145); TOTAL PROTEIN 7.2 GM/DL (6.4-8.2)
== END ==
LOC: M LAB 08:17
PROVIDERS: ATTEND Nurse Practitioner Family
DX: D64.9 Anemia, unspecified (principal); I10 Essential (primary) hypertension

== ENCOUNTER → 2021-01-04 | Outpatient (CLI) | payer MEDICARE, MEDICAID ==
[2021-01-04 12:46] LABS: HEMOGLOBIN A1c 5.2 %
[2021-01-04 12:52] LABS: ALBUMIN 3.3 GM/DL (3.2-5.2); ALT/SGPT 16 U/L (12-78); BILIRUBIN,TOTAL 0.6 MG/DL (0.2-1.0); BLOOD UREA NITROGEN 7 MG/DL (7-18); CALCIUM LEVEL 9.4 MG/DL (8.8-10.2); CARBON DIOXIDE LEVEL 28 MEQ/L (21-32); CHLORIDE LEVEL 101 MEQ/L (98-107); CHOLESTEROL LEVEL 176 MG/DL (<200); CHOLESTEROL RISK RATIO 1.692 (<5); CREATININE FOR GFR 0.99 MG/DL (0.70-1.30); GLOMERULAR FILTRATION RATE > 60.0 (>49); GLUCOSE, FASTING 88 MG/DL (70-100); HDL CHOLESTEROL 104 MG/DL (>40); LDL CHOLESTEROL 56 MG/DL (<100); NON-HDL-C 72 MG/DL; POTASSIUM SERUM 4.3 MEQ/L (3.5-5.1); SODIUM LEVEL 134 MEQ/L (136-145); TOTAL PROTEIN 7.2 GM/DL (6.4-8.2); TRIGLYCERIDES LEVEL 79 MG/DL (<150)
--- NOTE | 2021-01-05 09:41 | REP ---
INDICATION: NICOTINE DEPENDENCE/ LABS 1ST, CT 2ND. COMPARISON: Multiple the latest 12/17/2019 also low-dose screening CT of the lungs TECHNIQUE: Axial noncontrast images from the thoracic inlet to the upper abdomen using low-dose lung screening technique (LDCT). As per the protocol only lung window images were sent to the read station for interpretation. FINDINGS: No new abnormal nodules, masses, or opacities have developed. Grossly, the mediastinum and pulmonary kary are stable. Grossly, the imaged upper abdomen and imaged osseous structures are stable. IMPRESSION: Stable lung rads category 1-low-dose screening CT examination of the lungs. According to the revised Fleischner society criteria yearly screening is recommended if clinically relevant. <Electronically signed by Nils Gibbons > 01/05/21 [id number]
== END ==
LOC: M RAD 11:55
PROVIDERS: ATTEND Nurse Practitioner Family
DX: R73.01 Impaired fasting glucose (principal); F17.210 Nicotine dependence, cigarettes, uncomplicated

== ENCOUNTER → 2021-09-04 | Outpatient (CLI) | payer MEDICARE, MEDICAID ==
[2021-09-04 08:07] LABS: ALBUMIN 3.3 GM/DL (3.2-5.2); ALT/SGPT 19 U/L (12-78); BILIRUBIN,TOTAL 0.6 MG/DL (0.2-1.0); BLOOD UREA NITROGEN 8 MG/DL (7-18); CALCIUM LEVEL 9.1 MG/DL (8.8-10.2); CARBON DIOXIDE LEVEL 26 MEQ/L (21-32); CHLORIDE LEVEL 98 MEQ/L (98-107); CHOLESTEROL LEVEL 166 MG/DL (<200); CHOLESTEROL RISK RATIO 1.643 (<5); CREATININE FOR GFR 1.11 MG/DL (0.70-1.30); GLOMERULAR FILTRATION RATE > 60.0 (>49); GLUCOSE, FASTING 112 MG/DL (70-100); HDL CHOLESTEROL 101 MG/DL (>40); LDL CHOLESTEROL 50 MG/DL (<100); NON-HDL-C 65 MG/DL; POTASSIUM SERUM 4.1 MEQ/L (3.5-5.1); SODIUM LEVEL 130 MEQ/L (136-145); TOTAL PROTEIN 7.3 GM/DL (6.4-8.2); TRIGLYCERIDES LEVEL 76 MG/DL (<150)
== END ==
LOC: M LAB 06:35
PROVIDERS: ATTEND Nurse Practitioner Family
DX: I10 Essential (primary) hypertension (principal)

== ENCOUNTER → 2022-01-19 | Outpatient (CLI) | payer MEDICARE, MEDICAID | LOC: M RAD 14:39 | PROVIDERS: ATTEND Nurse Practitioner Family | DX: F17.210 Nicotine dependence, cigarettes, uncomplicated (principal); Z12.2 Encounter for screening for malignant neoplasm of respiratory organs ==

== ENCOUNTER → 2022-07-12 | Outpatient (CLI) | payer MEDICARE, MEDICAID ==
[2022-07-12 09:25] LABS: ALBUMIN 3.5 G/DL (3.2-5.2); ALKALINE PHOSPHATASE 83 U/L (46-116); ALT/SGPT 18 U/L (7.0-40); AST/SGOT 18 U/L (<34); BILIRUBIN,TOTAL 0.8 MG/DL (0.3-1.2); BLOOD UREA NITROGEN 7 MG/DL (9-23); CALCIUM LEVEL 9.1 MG/DL (8.3-10.6); CARBON DIOXIDE LEVEL 27 MMOL/L (20-31); CHLORIDE LEVEL 99 MMOL/L (98-107); CHOLESTEROL LEVEL 147 MG/DL (<200); CHOLESTEROL RISK RATIO 1.56 (<5); CREATININE FOR GFR 0.93 MG/DL (0.70-1.30); GLOMERULAR FILTRATION RATE > 60.0 (>49); GLUCOSE, FASTING 129 MG/DL (74-106); LDL CHOLESTEROL 43.6 MG/DL (<100); POTASSIUM SERUM 4.7 MMOL/L (3.5-5.1); SODIUM LEVEL 131 MMOL/L (136-145); TOTAL PROTEIN 6.7 G/DL (5.7-8.2); TRIGLYCERIDES LEVEL 47 MG/DL (<150)
[2022-07-12 09:37] LABS: BASO # 0.1 10^3/uL (0.0-0.2); EOS # 0.1 10^3/uL (0.0-0.5); EOS % 2.5 % (0.0-3.0); HEMATOCRIT 36.5 % (42.0-52.0); HEMOGLOBIN 13.1 g/dl (13.5-17.5); LYMPH # 1.3 10^3/uL (1.5-5.0); LYMPH % 27.3 % (24.0-44.0); MEAN CORPUSCULAR HEMOGLOBIN 32.4 pg (27.0-33.0); MEAN CORPUSCULAR VOLUME 90.3 fl (80.0-96.0); MONO # 0.6 10^3/uL (0.0-0.8); MONO % 13.1 % (2.0-8.0); NEUTROPHILS # 2.7 10^3/uL (1.5-8.5); NEUTROPHILS % 55.7 % (36.0-66.0); PLATELET COUNT, AUTOMATED 230 10^3/uL (150-450); RED BLOOD COUNT 4.04 10^6/uL (4.30-6.10); WHITE BLOOD COUNT 4.9 10^3/uL (4.0-10.0)
[2022-07-12 09:39] LABS: MEAN CORPUSCULAR HGB CONC 35.9 g/dl (32.0-36.5)
== END ==
LOC: M LAB 08:22
PROVIDERS: ATTEND Nurse Practitioner Family
DX: I10 Essential (primary) hypertension (principal); I27.82 Chronic pulmonary embolism

== ENCOUNTER → 2023-01-07 | Outpatient (CLI) | payer MEDICARE, MEDICAID ==
[~2023-01-07] MED LIST changes: +LORA-1041; -LORA-674
[2023-01-07 11:22] LABS: BASO # 0.1 10^3/uL (0.0-0.2); BASO % 1.1 % (0.0-1.0); EOS # 0.1 10^3/uL (0.0-0.5); EOS % 2.3 % (0.0-3.0); HEMATOCRIT 36.7 % (42.0-52.0); HEMOGLOBIN 13.6 g/dl (13.5-17.5); LYMPH # 1.2 10^3/uL (1.5-5.0); LYMPH % 28.1 % (24.0-44.0); MEAN CORPUSCULAR HEMOGLOBIN 33.7 pg (27.0-33.0); MEAN CORPUSCULAR VOLUME 90.8 fl (80.0-96.0); MONO # 0.5 10^3/uL (0.0-0.8); MONO % 12.3 % (2.0-8.0); NEUTROPHILS # 2.5 10^3/uL (1.5-8.5); PLATELET COUNT, AUTOMATED 191 10^3/uL (150-450); RED BLOOD COUNT 4.04 10^6/uL (4.30-6.10); WHITE BLOOD COUNT 4.4 10^3/uL (4.0-10.0)
[2023-01-07 11:23] LABS: MEAN CORPUSCULAR HGB CONC 37.1 g/dl (32.0-36.5)
[2023-01-07 11:41] LABS: ALBUMIN 3.2 G/DL (3.2-5.2); ALKALINE PHOSPHATASE 81 U/L (46-116); ALT/SGPT 17 U/L (7.0-40); AST/SGOT 23 U/L (<34); BILIRUBIN,TOTAL 0.8 MG/DL (0.3-1.2); BLOOD UREA NITROGEN 8 MG/DL (9-23); CALCIUM LEVEL 9.3 MG/DL (8.3-10.6); CARBON DIOXIDE LEVEL 26 MMOL/L (20-31); CHLORIDE LEVEL 95 MMOL/L (98-107); CHOLESTEROL LEVEL 172 MG/DL (<200); CHOLESTEROL RISK RATIO 1.47 (<5); CREATININE FOR GFR 0.96 MG/DL (0.70-1.30); GLOMERULAR FILTRATION RATE > 60.0 (>49); GLUCOSE, FASTING 108 MG/DL (74-106); HDL CHOLESTEROL 116.5 MG/DL (>40); LDL CHOLESTEROL 43.9 MG/DL (<100); NON-HDL-C 55.5 MG/DL; POTASSIUM SERUM 4.2 MMOL/L (3.5-5.1); SODIUM LEVEL 128 MMOL/L (136-145); TOTAL PROTEIN 6.8 G/DL (5.7-8.2); TRIGLYCERIDES LEVEL 58 MG/DL (<150)
== END ==
LOC: M LAB 10:28
PROVIDERS: ATTEND Nurse Practitioner Family
DX: I10 Essential (primary) hypertension (principal); I27.82 Chronic pulmonary embolism

== ENCOUNTER 2023-01-11 10:35 | Emergency (ER) | payer MEDICARE, MEDICAID ==
[~2023-01-11] VITALS: Ht 177.8 cm; Wt 69.5 kg
[2023-01-11] MEDS ORDERED: ALBU8.5H (11:39)
[2023-01-11] MEDS ORDERED: ASPI81CH48 (11:39)
[2023-01-11] MEDS ORDERED: NORCO, ANEXSIA 5/325MG TABLET (HYDROcodone/ACETAMINOPHEN) PO ONE (13:30)
[2023-01-11] MEDS ORDERED: HYDR-3713 PO (13:54)
[2023-01-11] MEDS ORDERED: MIRA3350 PO (13:54)
[2023-01-11 14:05] VITALS: BP 129/71; TEMP 97.1; O2SAT 98
== END 2023-01-11 14:17 | disposition home or self-care (01) ==
LOC: EDBD 10:35 → M ED 10:35
DX: S22.41XA Multiple fractures of ribs, right side, initial encounter for closed fracture (principal); W10.8XXA Fall (on) (from) other stairs and steps, initial encounter; F17.200 Nicotine dependence, unspecified, uncomplicated; I10 Essential (primary) hypertension; Z86.718 Personal history of other venous thrombosis and embolism; Z79.52 Long term (current) use of systemic steroids; Z79.811 Long term (current) use of aromatase inhibitors; Z79.899 Other long term (current) drug therapy

== ENCOUNTER → 2023-01-18 | Outpatient (CLI) | payer MEDICARE, MEDICAID ==
[~2023-01-18] MED LIST changes: +ALBU8.5H; +ASPI81CH48; +HYDR-3713 PO; +MIRA3350 PO
[2023-01-18 14:29] LABS: BLOOD UREA NITROGEN 6 MG/DL (9-23); CARBON DIOXIDE LEVEL 26 MMOL/L (20-31); CHLORIDE LEVEL 97 MMOL/L (98-107); CREATININE FOR GFR 0.82 MG/DL (0.70-1.30); GLOMERULAR FILTRATION RATE > 60.0 (>49); GLUCOSE, FASTING 86 MG/DL (74-106); SODIUM LEVEL 132 MMOL/L (136-145)
== END ==
LOC: M LAB 13:39
PROVIDERS: ATTEND Nurse Practitioner Family
DX: I10 Essential (primary) hypertension (principal)

== ENCOUNTER → 2023-02-08 | Outpatient (CLI) | payer MEDICARE, MEDICAID | LOC: M RAD 08:14 | PROVIDERS: ATTEND Nurse Practitioner Family | DX: Z12.2 Encounter for screening for malignant neoplasm of respiratory organs (principal); F17.210 Nicotine dependence, cigarettes, uncomplicated ==

== ENCOUNTER 2023-05-22 11:51 | Day surgery (SDC) | payer MEDICARE, MEDICAID ==
[~2023-05-22] VITALS: Ht 180.3 cm; Wt 67.9 kg
[~2023-05-22 11:51] MED LIST changes: -ALBU8.5H; +ALBU8.5H INH; -ASPI81CH48; +ASPI81CH48 PO
[2023-05-22] MEDS: NS 1,000 ML IV ONE (13:40)
[2023-05-22] MEDS ORDERED: LIDOCAINE 2% 100MG/5ML SDV (FOR ANES.) As Ordered ONE (14:05)
[2023-05-22] MEDS ORDERED: fentaNYL 100 MCG/2 ML INJECTION As Ordered ONE (14:06)
[2023-05-22] MEDS ORDERED: propofoL 200 MG/20 ML VIAL As Ordered ONE (14:17)
[2023-05-22 14:32] VITALS: TEMP 98
[2023-05-22 14:53] VITALS: BP 117/69; O2SAT 97
== END 2023-05-22 14:54 | disposition home or self-care (01) ==
LOC: M OPP 11:51
PROVIDERS: ATTEND Surgery
DX: D12.3 Benign neoplasm of transverse colon (principal); R63.4 Abnormal weight loss; K22.2 Esophageal obstruction; R13.10 Dysphagia, unspecified; Z53.8 Procedure and treatment not carried out for other reasons; F17.200 Nicotine dependence, unspecified, uncomplicated; Z79.51 Long term (current) use of inhaled steroids; Z79.82 Long term (current) use of aspirin; Z79.899 Other long term (current) drug therapy
CPT/HCPCS: 43235; 45385; 88305; J3010

== ENCOUNTER → 2023-06-28 | Day surgery (SDC) | payer MEDICARE, MEDICAID ==
[~2023-06-28] VITALS: Ht 180.3 cm; Wt 70.4 kg
[~2023-06-28] MED LIST changes: +AZEL0.05; +FLUTISP; +LIDOCAINE 2% 100MG/5ML SDV (FOR ANES.) As Ordered ONE; +LORA-1041 PO; +fentaNYL 100 MCG/2 ML INJECTION As Ordered ONE; +propofoL 200 MG/20 ML VIAL As Ordered ONE
[2023-06-28] MEDS: NS 1,000 ML IV ONE (09:40)
[2023-06-28 11:30] VITALS: BP 140/79; O2SAT 98
== END | disposition home or self-care (01) ==
LOC: M OPP 09:04
PROVIDERS: ATTEND Internal Medicine Gastroenterology
DX: K22.2 Esophageal obstruction (principal); K29.70 Gastritis, unspecified, without bleeding; K21.00 Gastro-esophageal reflux disease with esophagitis, without bleeding; R13.10 Dysphagia, unspecified; I10 Essential (primary) hypertension; F17.200 Nicotine dependence, unspecified, uncomplicated; Z79.51 Long term (current) use of inhaled steroids; Z79.82 Long term (current) use of aspirin; Z79.899 Other long term (current) drug therapy
CPT/HCPCS: 43239; 43249; 88305; J3010

== ENCOUNTER → 2023-07-08 | Outpatient (CLI) | payer MEDICARE, MEDICAID ==
[~2023-07-08] MED LIST changes: -LIDOCAINE 2% 100MG/5ML SDV (FOR ANES.) As Ordered ONE; -fentaNYL 100 MCG/2 ML INJECTION As Ordered ONE; -propofoL 200 MG/20 ML VIAL As Ordered ONE
[2023-07-08 11:16] LABS: BASO % 0.9 % (0.0-1.0); EOS # 0.2 10^3/uL (0.0-0.5); EOS % 3.9 % (0.0-3.0); HEMATOCRIT 34.3 % (42.0-52.0); HEMOGLOBIN 12.5 g/dl (13.5-17.5); LYMPH # 1.1 10^3/uL (1.5-5.0); LYMPH % 23.6 % (24.0-44.0); MEAN CORPUSCULAR HEMOGLOBIN 33.2 pg (27.0-33.0); MEAN CORPUSCULAR HGB CONC 36.4 g/dl (32.0-36.5); MEAN CORPUSCULAR VOLUME 91.2 fl (80.0-96.0); MONO # 0.7 10^3/uL (0.0-0.8); MONO % 14.3 % (2.0-8.0); NEUTROPHILS # 2.6 10^3/uL (1.5-8.5); NEUTROPHILS % 56.2 % (36.0-66.0); PLATELET COUNT, AUTOMATED 231 10^3/uL (150-450); RED BLOOD COUNT 3.76 10^6/uL (4.30-6.10); WHITE BLOOD COUNT 4.7 10^3/uL (4.0-10.0)
[2023-07-08 11:30] LABS: ALBUMIN 3.5 G/DL (3.2-5.2); ALKALINE PHOSPHATASE 91 U/L (46-116); ALT/SGPT 13 U/L (7.0-40); AST/SGOT 16 U/L (<34); BILIRUBIN,TOTAL 0.7 MG/DL (0.3-1.2); BLOOD UREA NITROGEN 10 MG/DL (9-23); CALCIUM LEVEL 8.6 MG/DL (8.3-10.6); CARBON DIOXIDE LEVEL 27 MMOL/L (20-31); CHLORIDE LEVEL 97 MMOL/L (98-107); CHOLESTEROL LEVEL 151 MG/DL (<200); CREATININE FOR GFR 0.83 MG/DL (0.70-1.30); GLOMERULAR FILTRATION RATE > 60.0 (>49); GLUCOSE, FASTING 106 MG/DL (74-106); HDL CHOLESTEROL 100.4 MG/DL (>40); LDL CHOLESTEROL 36.8 MG/DL (<100); NON-HDL-C 50.6 MG/DL; POTASSIUM SERUM 4.3 MMOL/L (3.5-5.1); SODIUM LEVEL 130 MMOL/L (136-145); TOTAL PROTEIN 6.9 G/DL (5.7-8.2); TRIGLYCERIDES LEVEL 69 MG/DL (<150)
== END ==
LOC: M LAB 10:21
PROVIDERS: ATTEND Nurse Practitioner Family
DX: I10 Essential (primary) hypertension (principal); I27.82 Chronic pulmonary embolism

== ENCOUNTER → 2023-08-08 | Outpatient (CLI) | payer MEDICARE, MEDICAID ==
[~2023-08-08] MED LIST changes: +BARIUM SULFATE 700 MG TABLET (E-Z-DISK) As Ordered ONE; +E-Z-GAS II EFFERVESCENT PACKET (SODIUM BICARB./CITRIC ACID/SIMETHICONE) As Ordered ONE; +E-Z-HD 98% w/w 340GM SUSP BTL As Ordered ONE; +E-Z-PAQUE 96% w/w SUSP 176GM BTL As Ordered ONE; +ELIQ5TAB PO; +VALI5TAB PO
== END ==
LOC: M RAD 08:51
PROVIDERS: ATTEND Internal Medicine Gastroenterology
DX: K22.2 Esophageal obstruction (principal); K44.9 Diaphragmatic hernia without obstruction or gangrene; K21.9 Gastro-esophageal reflux disease without esophagitis

== ENCOUNTER 2023-08-09 22:11 | Emergency (ER) | payer MEDICARE, MEDICAID ==
[~2023-08-09] VITALS: Ht 180.3 cm; Wt 69.1 kg
[~2023-08-09 22:11] MED LIST changes: -BARIUM SULFATE 700 MG TABLET (E-Z-DISK) As Ordered ONE; -E-Z-GAS II EFFERVESCENT PACKET (SODIUM BICARB./CITRIC ACID/SIMETHICONE) As Ordered ONE; -E-Z-HD 98% w/w 340GM SUSP BTL As Ordered ONE; -E-Z-PAQUE 96% w/w SUSP 176GM BTL As Ordered ONE; -ELIQ5TAB PO; -VALI5TAB PO
[2023-08-09 22:51] VITALS: TEMP 98.5
[2023-08-09 23:04] LABS: BASO # 0.1 10^3/uL (0.0-0.2); BASO % 0.7 % (0.0-1.0); EOS # 0.1 10^3/uL (0.0-0.5); EOS % 1.9 % (0.0-3.0); HEMATOCRIT 33.5 % (42.0-52.0); HEMOGLOBIN 12.4 g/dl (13.5-17.5); LYMPH # 1.7 10^3/uL (1.5-5.0); LYMPH % 24.6 % (24.0-44.0); MEAN CORPUSCULAR VOLUME 89.1 fl (80.0-96.0); MONO # 0.7 10^3/uL (0.0-0.8); MONO % 10.1 % (2.0-8.0); NEUTROPHILS # 4.2 10^3/uL (1.5-8.5); NEUTROPHILS % 62.3 % (36.0-66.0); PLATELET COUNT, AUTOMATED 232 10^3/uL (150-450); RED BLOOD COUNT 3.76 10^6/uL (4.30-6.10); WHITE BLOOD COUNT 6.7 10^3/uL (4.0-10.0)
[2023-08-09 23:14] LABS: ALBUMIN 3.5 G/DL (3.2-5.2); ALKALINE PHOSPHATASE 100 U/L (46-116); ALT/SGPT 16 U/L (7.0-40); AST/SGOT 16 U/L (<34); BILIRUBIN,DIRECT 0.2 MG/DL (<0.4); BILIRUBIN,TOTAL 0.6 MG/DL (0.3-1.2); BLOOD UREA NITROGEN 5 MG/DL (9-23); CALCIUM LEVEL 8.6 MG/DL (8.3-10.6); CARBON DIOXIDE LEVEL 23 MMOL/L (20-31); CHLORIDE LEVEL 95 MMOL/L (98-107); CK-MB VALUE MASS 2.9 NG/ML (<3.6); CREATININE FOR GFR 0.75 MG/DL (0.70-1.30); GLOMERULAR FILTRATION RATE > 60.0 (>49); GLUCOSE, FASTING 104 MG/DL (74-106); POTASSIUM SERUM 3.7 MMOL/L (3.5-5.1); SODIUM LEVEL 124 MMOL/L (136-145)
[2023-08-09 23:18] LABS: CPK CREATINE PHOSPHOKINASE 125 U/L (46-171); MB/CK RELATIVE INDEX 2.32 (< OR =4); THYROID STIMULATING HORMONE 2.738 uIU/ML (0.55-4.78)
[2023-08-10] MEDS: diazePAM 10MG/2ML SYRINGE IV ONE (00:37)
[2023-08-10] MEDS ORDERED: ELIQ5TAB PO (01:09)
[2023-08-10] MEDS ORDERED: VALI5TAB PO (01:13)
[2023-08-10 01:15] VITALS: BP 108/61; O2SAT 97
[2023-08-10] MEDS: APIXABAN 5 MG TAB (ELIQUIS) PO ONE (01:15)
== END 2023-08-10 01:33 | disposition home or self-care (01) ==
LOC: M ED 22:11
DX: R07.89 Other chest pain (principal); I82.412 Acute embolism and thrombosis of left femoral vein; I82.432 Acute embolism and thrombosis of left popliteal vein; Z86.711 Personal history of pulmonary embolism; Z86.718 Personal history of other venous thrombosis and embolism; I10 Essential (primary) hypertension; J44.9 Chronic obstructive pulmonary disease, unspecified; F17.200 Nicotine dependence, unspecified, uncomplicated; Z79.82 Long term (current) use of aspirin; Z79.899 Other long term (current) drug therapy
CPT/HCPCS: 80048; 80076; 82550; 82553; 83880; 84443; 84484; 85025; 93005; 93971; 96374; 99284; J3360

== ENCOUNTER → 2023-08-26 | Outpatient (CLI) | payer MEDICARE, MEDICAID ==
[~2023-08-26] MED LIST changes: +ELIQ5TAB PO; +VALI5TAB PO
[2023-08-26 09:59] LABS: BASO # 0.1 10^3/uL (0.0-0.2); BASO % 1.1 % (0.0-1.0); EOS # 0.1 10^3/uL (0.0-0.5); EOS % 2.4 % (0.0-3.0); HEMOGLOBIN 12.9 g/dl (13.5-17.5); LYMPH # 0.9 10^3/uL (1.5-5.0); LYMPH % 20.8 % (24.0-44.0); MEAN CORPUSCULAR VOLUME 89.5 fl (80.0-96.0); MONO # 0.5 10^3/uL (0.0-0.8); MONO % 11.5 % (2.0-8.0); NEUTROPHILS # 2.9 10^3/uL (1.5-8.5); PLATELET COUNT, AUTOMATED 230 10^3/uL (150-450); RED BLOOD COUNT 3.91 10^6/uL (4.30-6.10); WHITE BLOOD COUNT 4.5 10^3/uL (4.0-10.0)
[2023-08-26 10:00] LABS: MEAN CORPUSCULAR HGB CONC 36.9 g/dl (32.0-36.5)
[2023-08-26 10:25] LABS: ALBUMIN 3.4 G/DL (3.2-5.2); ALKALINE PHOSPHATASE 100 U/L (46-116); ALT/SGPT 17 U/L (7.0-40); AST/SGOT 18 U/L (<34); BLOOD UREA NITROGEN 7 MG/DL (9-23); CALCIUM LEVEL 9.1 MG/DL (8.3-10.6); CARBON DIOXIDE LEVEL 26 MMOL/L (20-31); CHLORIDE LEVEL 98 MMOL/L (98-107); CREATININE FOR GFR 0.83 MG/DL (0.70-1.30); GLOMERULAR FILTRATION RATE > 60.0 (>49); GLUCOSE, FASTING 99 MG/DL (74-106); POTASSIUM SERUM 4.5 MMOL/L (3.5-5.1); SODIUM LEVEL 128 MMOL/L (136-145); TOTAL PROTEIN 6.8 G/DL (5.7-8.2)
== END ==
LOC: M LAB 09:10
PROVIDERS: ATTEND Nurse Practitioner Family
DX: I82.512 Chronic embolism and thrombosis of left femoral vein (principal)

== ENCOUNTER 2023-10-02 09:49 | Outpatient (RCR) | payer MEDICARE, MEDICAID ==
[2023-10-05] MEDS ORDERED: TRAM50TA2 PO (21:29)
[2023-10-05] MEDS ORDERED: ANEC4CRE3 TOP (21:31)
== END 2023-10-09 ==
LOC: M PT 09:49
PROVIDERS: ATTEND Nurse Practitioner Family
DX: M54.2 Cervicalgia (principal)

== ENCOUNTER 2023-10-05 16:13 | Emergency (ER) | payer MEDICARE, MEDICAID ==
[~2023-10-05] VITALS: Ht 177.8 cm; Wt 71.4 kg
[2023-10-05] MEDS: methocarbamoL 750 MG TAB PO ONE (20:21)
[2023-10-05] MEDS: LIDOCAINE 4% CREAM 5GM (LMX4) TOP ONE (20:24)
[2023-10-05] MEDS ORDERED: TRAM50TA2 PO (21:29)
[2023-10-05] MEDS ORDERED: ANEC4CRE3 TOP (21:31)
[2023-10-05 21:34] VITALS: BP 128/72; TEMP 97.4; O2SAT 98
[2023-10-05] MEDS: traMADol 50 MG TAB PO ONE ×2 (21:34)
== END 2023-10-05 21:38 | disposition left against medical advice (07) ==
LOC: M ED 16:13
DX: M54.2 Cervicalgia (principal); Z53.9 Procedure and treatment not carried out, unspecified reason; I10 Essential (primary) hypertension; Z86.711 Personal history of pulmonary embolism; Z86.718 Personal history of other venous thrombosis and embolism; Z79.82 Long term (current) use of aspirin; Z79.899 Other long term (current) drug therapy

== ENCOUNTER → 2023-11-05 | Outpatient (CLI) | payer MEDICARE, MEDICAID ==
[~2023-11-05] MED LIST changes: +ANEC4CRE3 TOP; +TRAM50TA2 PO
== END ==
LOC: M PLALAB 11:37
PROVIDERS: ATTEND Internal Medicine Hematology
DX: I82.90 Acute embolism and thrombosis of unspecified vein (principal)

== ENCOUNTER 2023-11-06 12:15 | Outpatient (RCR) | payer MEDICARE, MEDICAID | END 2023-11-09 | LOC: M PT 12:15 | PROVIDERS: ATTEND Nurse Practitioner Family | DX: M54.2 Cervicalgia (principal) ==

== ENCOUNTER 2023-12-04 10:33 | Outpatient (RCR) | payer MEDICARE, MEDICAID | END 2023-12-09 | LOC: M PT 10:33 | PROVIDERS: ATTEND Nurse Practitioner Family | DX: M54.2 Cervicalgia (principal) ==

== ENCOUNTER → 2024-01-14 | Outpatient (CLI) | payer MEDICARE, MEDICAID ==
[2024-01-14 11:35] LABS: BASO % 0.7 % (0.0-1.0); EOS # 0.2 10^3/uL (0.0-0.5); EOS % 2.7 % (0.0-3.0); HEMATOCRIT 38.1 % (42.0-52.0); HEMOGLOBIN 13.8 g/dl (13.5-17.5); LYMPH # 1.4 10^3/uL (1.5-5.0); LYMPH % 25.2 % (24.0-44.0); MEAN CORPUSCULAR HEMOGLOBIN 32.9 pg (27.0-33.0); MEAN CORPUSCULAR HGB CONC 36.2 g/dl (32.0-36.5); MEAN CORPUSCULAR VOLUME 90.9 fl (80.0-96.0); MONO # 0.7 10^3/uL (0.0-0.8); MONO % 12.4 % (2.0-8.0); NEUTROPHILS # 3.2 10^3/uL (1.5-8.5); NEUTROPHILS % 58.3 % (36.0-66.0); PLATELET COUNT, AUTOMATED 252 10^3/uL (150-450); RED BLOOD COUNT 4.19 10^6/uL (4.30-6.10); WHITE BLOOD COUNT 5.5 10^3/uL (4.0-10.0)
[2024-01-14 12:05] LABS: ALBUMIN 3.3 G/DL (3.2-5.2); ALKALINE PHOSPHATASE 105 U/L (40-129); ALT/SGPT 18 U/L (7.0-40); AST/SGOT 17 U/L (<34); BILIRUBIN,TOTAL 0.8 MG/DL (0.3-1.2); BLOOD UREA NITROGEN 9 MG/DL (9-23); CALCIUM LEVEL 9.5 MG/DL (8.3-10.6); CARBON DIOXIDE LEVEL 27 MMOL/L (20-31); CHLORIDE LEVEL 98 MMOL/L (98-107); CHOLESTEROL LEVEL 173 MG/DL (<200); CHOLESTEROL RISK RATIO 1.73 (<5); CREATININE FOR GFR 0.87 MG/DL (0.70-1.30); GLOMERULAR FILTRATION RATE > 60.0 (>42); GLUCOSE, FASTING 94 MG/DL (74-106); HDL CHOLESTEROL 99.6 MG/DL (>40); NON-HDL-C 73.4 MG/DL; POTASSIUM SERUM 4.4 MMOL/L (3.5-5.1); SODIUM LEVEL 131 MMOL/L (136-145); TOTAL PROTEIN 7.4 G/DL (5.7-8.2); TRIGLYCERIDES LEVEL 77 MG/DL (<150)
== END ==
LOC: M LAB 10:25
PROVIDERS: ATTEND Nurse Practitioner Family
DX: I82.512 Chronic embolism and thrombosis of left femoral vein (principal); I10 Essential (primary) hypertension

== ENCOUNTER → 2024-04-03 | Outpatient (CLI) | payer MEDICARE, MEDICAID | LOC: M RAD 13:54 | PROVIDERS: ATTEND Nurse Practitioner Family | DX: Z12.2 Encounter for screening for malignant neoplasm of respiratory organs (principal); F17.210 Nicotine dependence, cigarettes, uncomplicated ==

== ENCOUNTER 2024-11-26 07:50 | Day surgery (SDC) | payer MEDICARE, MEDICAID ==
[~2024-11-26] VITALS: Ht 177.8 cm; Wt 73.9 kg
[~2024-11-26 07:50] MED LIST changes: +LIDOCAINE 2% 100 MG/5 ML SDV (FOR ANES.) As Ordered ONE; +LISI40TA10 PO; -LISI40TA4 PO
[2024-11-26 08:53] VITALS: TEMP 97.4
[2024-11-26 09:15] VITALS: BP 119/67; O2SAT 99
== END 2024-11-26 09:46 | disposition home or self-care (01) ==
LOC: M OPP 07:50
PROVIDERS: ATTEND Internal Medicine Gastroenterology
DX: K22.2 Esophageal obstruction (principal); K31.89 Other diseases of stomach and duodenum; R13.10 Dysphagia, unspecified; Z79.01 Long term (current) use of anticoagulants; Z79.51 Long term (current) use of inhaled steroids; Z79.899 Other long term (current) drug therapy; Z86.718 Personal history of other venous thrombosis and embolism; Z86.711 Personal history of pulmonary embolism; F17.200 Nicotine dependence, unspecified, uncomplicated
CPT/HCPCS: 43249; 88305; J3010

== ENCOUNTER → 2025-01-13 | Outpatient (CLI) | payer MEDICARE, MEDICAID ==
[~2025-01-13] MED LIST changes: -LIDOCAINE 2% 100 MG/5 ML SDV (FOR ANES.) As Ordered ONE
[2025-01-13 10:55] LABS: BASO # 0.0 10^3/uL (0.0-0.2); BASO % 0.9 % (0.0-1.0); EOS # 0.1 10^3/uL (0.0-0.5); EOS % 1.8 % (0.0-3.0); LYMPH # 1.0 10^3/uL (1.5-5.0); LYMPH % 23.6 % (24.0-44.0); MONO # 0.6 10^3/uL (0.0-0.8); MONO % 13.4 % (2.0-8.0); NEUTROPHILS # 2.6 10^3/uL (1.5-8.5); NEUTROPHILS % 59.8 % (36.0-66.0); PLATELET COUNT, AUTOMATED 248 10^3/uL (150-450)
[2025-01-13 11:00] LABS: ALT/SGPT 20.0 U/L (7.0-40); AST/SGOT 27.0 U/L (<34); CALCIUM LEVEL 9.2 MG/DL (8.3-10.6); CARBON DIOXIDE LEVEL 26.0 MMOL/L (20-31); CHLORIDE LEVEL 97.0 MMOL/L (98-107); CHOLESTEROL LEVEL 176.0 MG/DL (<200); CHOLESTEROL RISK RATIO 1.65 (<5); CREATININE FOR GFR 0.96 MG/DL (0.70-1.30); GLOMERULAR FILTRATION RATE 84.5 (>42); LDL CHOLESTEROL 57.8 MG/DL (<100); NON-HDL-C 69.8 MG/DL; POTASSIUM SERUM 4.5 MMOL/L (3.5-5.1); SODIUM LEVEL 130.0 MMOL/L (136-145); TRIGLYCERIDES LEVEL 60.0 MG/DL (<150)
== END ==
LOC: M LAB 09:27
PROVIDERS: ATTEND Nurse Practitioner Family
DX: I10 Essential (primary) hypertension (principal)

== ENCOUNTER → 2025-02-19 | Outpatient (CLI) | payer MEDICARE, MEDICAID | LOC: M SOG 07:35 | PROVIDERS: ATTEND Physician Assistant | DX: M79.641 Pain in right hand (principal); M79.642 Pain in left hand; Z53.9 Procedure and treatment not carried out, unspecified reason ==